=== PATIENT | female | born 1945 | race Caucasian/White ===

== ENCOUNTER → 2017-11-15 10:11 | Outpatient (CLI) | payer MEDICARE, SELFPAY ==
--- NOTE | 2017-11-15 10:14 | MM_ITS ---
MM Dig screening mamm BI w/CAD ORDERING PHYSICIAN : Javier Oviedo MD PATIENT AGE: 72 years GENDER: Female COMPARISON: August 2013,, distal mammogram INDICATION: ITS.REASON: SCREENING no hormones. Previous hysterectomy no new complaints. Noncontributory family history TECHNIQUE: Standard CC and MLO images were obtained. R2 CAD reviewed. FINDINGS: Moderate generalized fatty replacement with minimal residual fibroglandular elements bilaterally. I see no suspicious findings. No suspicious calcifications or suspicious mass. Fairly stable nodule inferior left breast RIGHT BREAST:Stable with no new findings follow-up in one year recommended on right. LEFT BREAST:There is a small nodular density at the left breast inferiorly which is stable since 2013 and this can be followed. It measures 5 mm x 4 mm size. On the MLO view & up to 6.8 mm on the cc view. It a can be followed Also note CAD computer review highlights no areas of concern in either breast IMPRESSION: No significant new findings Fairly Stable small nodule inferior left breast.- No significant change since 2013 Follow-up in one year recommended BI-RADS Category: 2 Benign Finding(s) RECOMMENDED FOLLOW-UP: 1YR 1 YEAR FOLLOW-UP (A letter has been sent to the patient regarding results of the study.)
== END ==
PROVIDERS: Family Provider Family Medicine; PCP Family Medicine; Visit Provider Family Medicine
DX: Z12.31 Encounter for screening mammogram for malignant neoplasm of breast (principal)
CPT/HCPCS: 77067

== ENCOUNTER → 2018-01-03 14:05 | Outpatient (CLI) | payer MEDICARE, SELFPAY ==
[2018-01-03 16:14] LABS: Alanine Aminotransferase 24 U/L (12-78); Albumin Level 3.7 gm/dL (3.4-5.0); Alkaline Phosphatase 88 U/L (46-116); Anion Gap 12.6 mEq/L (5-15); Bilirubin,Total 0.4 mg/dL (0.2-1.0); Blood Urea Nitrogen 20 mg/dL (7-18); Calcium 10.3 mg/dL (8.5-10.1); Carbon Dioxide 30 mmol/L (21.0-32.0); Chloride 104 mmol/L (98-107); Creatinine,Serum 0.84 mg/dL (0.55-1.02); Estimated Glomerular Filt Rate 66 ml/min (>60); GFR (African American) 80 ML/MIN (>60); Globulin 3.7 gm/dl (1.3-3.2); Glucose 95 mg/dL (74-106); Sodium 142 mmol/L (136-145); Total Protein,Serum 7.4 gm/dL (6.4-8.2)
[2018-01-03 16:16] LABS: Aspartate Amino Transferase 17 U/L (15-37); Potassium 4.6 mmoL/L (3.5-5.1)
== END ==
PROVIDERS: PCP Family Medicine; Visit Provider Otolaryngology
DX: Z01.818 Encounter for other preprocedural examination (principal); H65.90 Unspecified nonsuppurative otitis media, unspecified ear
CPT/HCPCS: 36415; 80053; 93005

== ENCOUNTER → 2018-03-19 11:04 | Outpatient (CLI) | payer MEDICARE, SELFPAY ==
[2018-03-19 12:12] LABS: Anion Gap 14.8 mEq/L (5-15); Blood Urea Nitrogen 15 mg/dL (7-18); Calcium 10.1 mg/dL (8.5-10.1); Carbon Dioxide 28 mmol/L (21.0-32.0); Chloride 101 mmol/L (98-107); Creatinine,Serum 0.92 mg/dL (0.55-1.02); Estimated Glomerular Filt Rate 60 ml/min (>60); GFR (African American) 72 ML/MIN (>60); Glucose 97 mg/dL (74-106); Potassium 4.8 mmoL/L (3.5-5.1); Sodium 139 mmol/L (136-145)
== END ==
PROVIDERS: Visit Provider Otolaryngology
DX: Z01.818 Encounter for other preprocedural examination (principal); H91.93 Unspecified hearing loss, bilateral
CPT/HCPCS: 36415; 80048; 93005

== ENCOUNTER → 2018-09-10 13:28 | Outpatient (POV) | payer MEDICARE, SELFPAY | PROVIDERS: Visit Provider Dermatology | DX: Z00.00 Encounter for general adult medical examination without abnormal findings (principal) ==

== ENCOUNTER → 2018-10-22 08:05 | Outpatient (CLI) | payer MEDICARE, SELFPAY ==
--- NOTE | 2018-10-22 08:18 | MR_ITS ---
MR head/brain wo/w con HISTORY: ITS.REASON: ASYMMETRIC SNHL (SENSORINEURAL HEARING LOSS) ORDERING PHYSICIAN: Molly Rehman MD PATIENT AGE: 73 years Comparison: 12/16/2013 TECHNIQUE: Standard multiplanar multiecho sequences are performed without and with gadolinium enhancement. FINDINGS: No midline shift, mass effect, intracranial hemorrhage, or hydrocephalus is evident. No acute infarction. No enhancing lesions are evident. The cerebellopontine angles, cerebellum, and brainstem are unremarkable. There are involutional changes of age with mild generalized atrophy and periventricular ischemic gliotic change. There is opacification of the left aspect of the sphenoid sinus. No sinus air-fluid levels or mastoid effusion is evident. IMPRESSION: 1. Essentially negative MRI of the brain without and with contrast. 2. There are involutional changes of age with atrophy and periventricular ischemic gliotic change. 3. Nonspecific opacification of left aspect of the sphenoid sinus
[2018-10-22 08:24] LABS: Blood Urea Nitrogen 16 mg/dL (7-18); Creatinine,Serum 0.95 mg/dL (0.55-1.02); Estimated Glomerular Filt Rate 57 ml/min (>60); GFR (African American) 69 ML/MIN (>60)
== END ==
PROVIDERS: Visit Provider Otolaryngology
DX: H90.5 Unspecified sensorineural hearing loss (principal)
CPT/HCPCS: 36415; 70553; 82565; 84520; A9576

== ENCOUNTER 2019-12-20 12:48 | Emergency (ER) | payer MEDICARE, SELFPAY ==
[2019-12-20 12:50] VITALS: BP 133/92; PULSE 114; RESP 18; TEMP 36.8; O2SAT 97; BMI 42.0
[2019-12-20 13:05] LABS: POC Glucose,Bedside 139 (70-110)
--- NOTE | 2019-12-20 13:06 | HMH.EDGENADL ---
ED Disposition Clinical Impression: Vertigo, Dehydration Vomiting Qualifiers: Vomiting type: unspecified Vomiting Intractability: non-intractable Nausea presence: with nausea Qualified Code(s): R11.2 - Nausea with vomiting, unspecified Disposition: Home, Self-Care Condition on Discharge: Good Instructions: DI for Vertigo, DI for Dehydration -- Adult Referrals: Javier Oviedo MD [Primary Care Provider] - 3 days - Critical Care Critical Care Time: No Attestation: On 12/20/19, the high probability of a clinically significant, sudden or life threatening deterioration of the following system(s) required my full and direct attention, intervention and personal management. The time I documented below is in addition to time spent performing reported procedures but includes the following listed in this critical care notation. Medical Decision Making - Medical Records Medical records reviewed: Yes: I reviewed the patient's medical records. - Dawit Inquiry Pt receiving controlled substance: No Vital Signs: 12/20/19 12:50 Temperature 98.2 F Temperature Source Oral Pulse Rate [Right] 114 H Respiratory Rate 18 Blood Pressure [Right Arm] 133/92 H Blood Pressure Mean [Right Arm] 105 02 Sat by Pulse Oximetry 97 - Lab Data Lab results reviewed: Yes: I reviewed the patient's lab results. Lab Results 12/20/19 13:03: POC Glucose 139 H 12/20/19 13:15: Urine Color Yellow, Urine Appearance Clear, Urine pH 7.0, Ur Specific [place] 1.025, Urine Protein Negative, Urine Glucose (UA) Negative, Urine Ketones 1+, Urine Blood Negative, Urine Nitrate Negative, Urine Bilirubin Negative, Urine Urobilinogen 0.2, Ur Leukocyte Esterase Negative, Urine RBC None, Urine WBC None, Ur Squamous Epith Cells 3-5, Amorphous Sediment 1+, Urine Bacteria 1+ 12/20/19 13:32: WBC 16.7 H, RBC 5.08, Hgb 14.7, Hct 42.2, MCV 82.9, MCH 28.9, MCHC 34.9, RDW 14.1, Plt Count 297, MPV 8.0, Neut % (Auto) 86.2 H, Lymph % (Auto) 9.7 L, [place] % (Auto) 3.5, Eos % (Auto) 0.3, Baso % (Auto) 0.3, Neut # (Auto) 14.4 H, Lymph # (Auto) 1.6, [place] # (Auto) 0.6, Eos # (Auto) 0.0, Baso # (Auto) 0.1, Total Counted 100, Neutrophils % (Manual) 87 H, Lymphocytes % (Manual) 10, Monocytes % (Manual) 3, Platelet Estimate Normal, RBC Morphology Normal 12/20/19 13:32: Sodium 138, Potassium 3.6, Chloride 100, Carbon Dioxide 29, Anion Gap 12.6, BUN 19 H, Creatinine 0.80, Estimated Creat Clear 38, Estimated GFR 70, Est GFR ( Amer) 84, Glucose 147 H, Calcium 10.2, Troponin I < 0.01 Result diagrams: 12/20/19 13:32 12/20/19 13:32 Orders (Tests/Meds): ED MEDICATIONS Discontinued Medications Generic Name Dose Route Start Last Admin Trade Name Freq PRN Reason Stop Dose Admin Sodium Chloride 1,000 mls @ 999 mls/hr 12/20/19 13:45 12/20/19 13:38 Sod Chlor 0.9% 1000ml Bag IV 12/20/19 14:45 999 mls/hr .Q1H1M DONATO Administration Ioversol 100 ml 12/20/19 15:09 12/20/19 15:11 Rad-Optiray 350 100ml Vial IV 12/20/19 15:10 100 ml ONCE ONE Administration Protocol Ondansetron HCl 4 mg 12/20/19 13:36 12/20/19 13:38 Zofran 4mg/2ml Vial IV 12/20/19 13:37 4 mg ONCE ONE Administration Sodium Chloride 50 ml 12/20/19 15:09 12/20/19 15:11 Rad-Ns 50ml Vial IV 12/20/19 15:10 50 ml ONCE ONE Administration Sodium Chloride 10 ml 12/20/19 15:09 12/20/19 15:11 Rad-Saline Flush 10ml Syringe IV 12/20/19 15:10 10 ml ONCE ONE Administration ORDERS Category Date Time Status Troponin I Q3H Lab 12/20/19 16:15 Ordered Troponin I Q3H Lab 12/20/19 19:15 Ordered EKG Request [ECG Request by /April] Stat Y 12/20/19 13:10 Ordered - CT Data CT Scan: Head Time Received: 15:[address] Reviewed: Yes: I have reviewed the patient's CT results Findings Narrative: CTA head and neck, CT head with no acute findings. Medical Decision Narrative: Patient feeling much better on reevaluation at 1540. Her CT scans are negative, urinalysis negative for
[2019-12-20 13:38] LABS: Microscopic, Urine URINE MICROSCOPIC (MICROSCOPIC)
[2019-12-20 13:39] LABS: Appearance,Urine CLEAR (Clear); Bilirubin,Urine Negative (Negative); Blood, Urine Negative (Negative); Color,Urine YELLOW (Yellow); Glucose,Urine (UA) Negative (Negative); Ketones,Urine 1+ (Negative); Leukocyte Esterase,Urine Negative (Negative); Nitrate,Urine Negative (Negative); Protein,Urine Negative (Negative); Specific Gravity, Urine 1.025 (1.005-1.030); Urobilinogen,Urine 0.2 EU/dl (0.2)
[2019-12-20 13:39] LABS: Basophils # 0.1 K/mm3 (0-0.2); Basophils % 0.3 % (0.1-2.0); Eosinophils % 0.3 % (0.1-12.0); Hematocrit 42.2 % (37.0-47.0); Hemoglobin 14.7 g/dL (12.2-16.2); Lymphocytes # 1.6 K/mm3 (0.7-4.5); Lymphocytes % 9.7 % (10-50); Mean Corpuscular HGB Conc 34.9 g/dL (31.8-35.4); Mean Corpuscular Hemoglobin 28.9 pg (27.0-31.2); Mean Corpuscular Volume 82.9 fl (81-99); Monocytes # 0.6 K/mm3 (0.1-1.0); Monocytes % 3.5 % (1.7-9.3); Neutrophils # 14.4 K/mm3 (1.8-7.8); Neutrophils % 86.2 % (37.0-80.0); Platelet Count 297 K/mm3 (142-424); Red Blood Count 5.08 M/mm3 (4.20-5.40); Red Cell Distribution Width 14.1 % (11.5-17.5); White Blood Count 16.7 K/mm3 (4.8-10.8)
[2019-12-20 13:42] LABS: MANUAL DIFFERENTIAL MANUAL DIFFERENTIAL (MANUAL DIFF)
[2019-12-20 13:43] LABS: Chloride 100 mmol/L (98-107); Sodium 138 mmol/L (136-145)
[2019-12-20 13:44] LABS: Potassium 3.6 mmoL/L (3.5-5.1)
[2019-12-20 13:46] LABS: Blood Urea Nitrogen 19 mg/dl (7-17); Creatinine Clearance Estimated 38 mL/min (50-200); Estimated Glomerular Filt Rate 70 ml/min (>60); GFR (African American) 84 ML/MIN (>60)
[2019-12-20 13:47] LABS: Anion Gap 12.6 mEq/L (5-15); Calcium 10.2 mg/dl (8.4-10.2); Carbon Dioxide 29 mmol/L (22.0-30.0); Glucose 147 mg/dl (74-100)
[2019-12-20 13:49] LABS: Amorphous Sediment,Urine 1+ /lpf; Bacteria,Urine 1+ /lpf
[2019-12-20 13:53] LABS: Lymphocytes % 10 % (10-50); Monocytes % 3 % (2-9); Neutrophils % 87 % (42-76); Platelet Estimate Normal; RBC Morphology Normal; Total Cells Counted 100
[2019-12-20 14:10] LABS: Troponin I < 0.01 ng/ml (0.00-0.034)
--- NOTE | 2019-12-20 14:12 | CT_ITS ---
Procedure: CT ANGIO NECK CLINICAL HISTORY: DIZZINESS Dizziness, stroke alert COMPARISON: No exams were available for comparison TECHNIQUE: IV Contrast: 100ml Optiray 350 Axial images obtained with sagittal and coronal reformats. All CT scans at the facility use one or more dose reduction, viz: automated exposure control, ma/kV adjustment per patient size (including targeted exams where dose is matched to indication, i.e. head), or iterative reconstruction technique. FINDINGS: CTA neck: The aortic arch has an unremarkable appearance. Right carotid: Common carotid is tortuous but unremarkable. Mild amount of calcific plaque is present in the right carotid bulb. The right internal carotid is tortuous but no significant stenosis. There is motion artifact involving the proximal aspect of the right internal carotid. Right vertebral: Unremarkable. No stenosis or dissection. Left carotid: Tortuous. No stenosis. No significant plaque ulceration or some dissection. Left vertebral: Unremarkable appearance. CT of the brain: No aneurysm, arteriovenous malformation, or major intracranial occlusive process. The vertebral basilar system has an unremarkable appearance. No evidence of sinus thrombosis. There is hypoplasia of the transverse sinus on the left. No enhancing lesions are apparent. Thin section images through the posterior fossa show no evidence of enhancing CP angle mass. IMPRESSION: 1. Negative CT angiogram of the neck 2. Negative CT angiogram of the head Dictated by: Walter Dunne MD 12/20/2019 15:32 Walter Dunne MD in [facility] 12/20/2019 15:32
--- NOTE | 2019-12-20 14:12 | CT_ITS ---
PROCEDURE: CT HEAD/BRAIN WO CON CLINICAL INDICATION: DIZZINESS Vertigo, stroke alert COMPARISON: CT HDWO CT HEAD W/O CONTRAST from 12/16/2013 TECHNIQUE: Axial images obtained. All CT scans at the facility use one or more dose reduction, viz: automated exposure control, ma/kV adjustment per patient size (including targeted exams where dose is matched to indication, i.e. head), or iterative reconstruction technique. FINDINGS: No midline shift, mass effect, intracranial hemorrhage, hydrocephalus, or extra-axial fluid collection is evident. The calvarium has an unremarkable appearance. No mastoid effusion. There is mild mucosal thickening of the sphenoid sinus IMPRESSION: No acute intracranial finding Dictated by: Walter Dunne MD 12/20/2019 15:21 Walter Dunne MD in [facility] 12/20/2019 15:21
[2019-12-20 16:45] VITALS: BP 131/57; PULSE 100; RESP 20; TEMP 36.8; O2SAT 97
== END 2019-12-20 16:46 | disposition home or self-care (01) ==
PROVIDERS: Emergency Provider Emergency Medicine; PCP Family Medicine
DX: R42 Dizziness and giddiness (principal); E86.0 Dehydration; I10 Essential (primary) hypertension; E78.5 Hyperlipidemia, unspecified; Z79.899 Other long term (current) drug therapy; Z88.2 Allergy status to sulfonamides
CPT/HCPCS: 70450; 70496; 70498; 80048; 81001; 82962; 84484; 85007; 85025; 96365; 96375; 99283; J2405; Q9967

== ENCOUNTER → 2020-02-16 12:09 | Outpatient (CLI) | payer MEDICARE, SELFPAY | PROVIDERS: PCP Nurse Practitioner Family; Visit Provider Nurse Practitioner Family | DX: Z20.828 Contact with and (suspected) exposure to other viral communicable diseases (principal); U07.1 COVID-19 | CPT/HCPCS: U0003 ==

== ENCOUNTER 2020-02-21 13:21 | Inpatient (IN) | payer MEDICARE, SELFPAY ==
[2020-02-21] VITALS (17 sets, daily range): BP systolic 112–144; BP diastolic 65–86; PULSE 70–102; RESP 19–48; TEMP 36.6–37.6; O2SAT 60–98; BMI 42.0; BMI 40.3; BMI 39.9
--- NOTE | 2020-02-21 | ECG_ITS ---
APPROVED REPORT Exam: Resting ECG HR:79 bpm ECG Measurements Heart Rate 79 AXES LA 158 P 25 QRSd 90 QRS -8 QT 420 T 21 QTc 481 Conclusion Normal sinus rhythm Normal ECG Electronically signed by : Tanner Quezada, 02/22/2020 16:52:07
--- NOTE | 2020-02-21 13:30 | PC.NURSE ---
received to exam 4 via wheelchair, entered room to find patient pale, dusky in color with tachypnea rate of approx 38 breaths per minutes, sao2 60% on ra with c/o severe shortness of breath. pt states she was diagnosed with covid last week. pt placed on cardiac, spo2, nibp monitoring and o2 at 100%NRB. Dr Ventura notified of patient status and is at bedside for eval.
--- NOTE | 2020-02-21 13:35 | PC.NURSE ---
After patient assessment by Dr. Ventura, he requests immediate transfer to ICU due to possible patient further decline warranting intubation and/or bipap usage. supervisor molding notified for bed request. Admitting called for consult.
--- NOTE | 2020-02-21 13:41 | ECG_ITS ---
APPROVED REPORT Exam: Resting ECG HR:100 bpm ECG Measurements Heart Rate 100 AXES MT 170 P 38 QRSd 94 QRS -13 QT 388 T 33 QTc 500 Conclusion Normal sinus rhythm Possible Left atrial enlargement Left ventricular hypertrophy Prolonged QT Abnormal ECG Electronically signed by : Tanner Quezada, 02/22/2020 16:59:31
--- NOTE | 2020-02-21 13:50 | PC.NURSE ---
room 266 received from [facility] supervisor. pt placed on portable transport monitor and Dr Ventura accompanied myself with transfer to ICU to monitor respiratory status. pt tolerated transfer well. spo2 96% on 100% NRB upon arrival to unit. Care transferred to ASAEL Felder at this time.
--- NOTE | 2020-02-21 14:04 | PC.NURSE ---
paged Dr. Bowens @ [phone] regarding orders for this pt. He returned call @ [phone]. Pt has not an ABG drawn yet. Dr. Bowens ordered to start with an ABG before placing pt on BiPap. Ordered entered on his behalf. RT @ . Updated her with new order.
--- NOTE | 2020-02-21 14:08 | PC.NURSE ---
pt brought to COVID unit @ [address] Ventura and Fátima Arvizu RN. Pt is on 100% NRB mask. O2 sat is 98%. Pt denies any SOA. Is A&O. HR 94. BP 132/74.
--- NOTE | 2020-02-21 14:09 | XR_ITS ---
PROCEDURE: XR CHEST PORTABLE CLINICAL HISTORY: shortness of breath COMPARISON: CR CXR1 CHEST-PORTABLE from 12/16/2013 FINDINGS: There is mild cardiomegaly with mild prominence of the mediastinum. There is diffuse bilateral alveolar opacification consistent with diffuse bilateral pneumonia with some sparing of the left apex. No acute bony abnormalities. IMPRESSION: Diffuse bilateral pneumonia Dictated by: Walter Dunne MD 02/21/2020 17:48 Walter Dunne MD in [facility] 02/21/2020 17:48
[2020-02-21 14:22] LABS: ABG Base Excess -0.4 mmol/L (-2.4-2.3); ABG HCO3 23.3 mmhg (22.0-26.0); ABG Oxygen Saturation 96 % (90-100); ABG PCO2 33.2 mmhg (35.0-45.0); ABG PH 7.47 mmol/L (7.35-7.45); ABG PO2 81.3 mmhg (80-100); ABG TCO2 24.4 mmhg (23-27)
[2020-02-21 14:23] LABS: Chloride 95 mmol/L (98-107); Sodium 138 mmol/L (136-145)
[2020-02-21 14:24] LABS: Allen's Test Acceptable; Oxygen 100% NRB %; Source Left Radial
[2020-02-21 14:26] LABS: Alanine Aminotransferase 51 U/L (12-78); Albumin Level 3.7 g/dl (3.5-5.0); Alkaline Phosphatase 123 U/L (38-126); Aspartate Amino Transferase 69 U/L (14-36); Bilirubin,Total 0.8 mg/dl (0.2-1.3); Blood Urea Nitrogen 50 mg/dl (7-17); Carbon Dioxide 29 mmol/L (22.0-30.0); Creatinine Clearance Estimated 39 mL/min (50-200); Estimated Glomerular Filt Rate 22 ml/min (>60); GFR (African American) 26 ML/MIN (>60); Globulin 3.7 g/dL (1.3-3.2); Total Protein,Serum 7.4 g/dl (6.3-8.2)
[2020-02-21 14:27] LABS: Calcium 9.3 mg/dl (8.4-10.2); Glucose 128 mg/dl (74-100)
[2020-02-21 14:40] LABS: Basophils # 0.1 K/mm3 (0-0.2); Basophils % 0.6 % (0.1-2.0); Eosinophils % 0.3 % (0.1-12.0); Hematocrit 43.4 % (37.0-47.0); Hemoglobin 14.3 g/dL (12.2-16.2); Lymphocytes # 1.8 K/mm3 (0.7-4.5); Lymphocytes % 15.3 % (10-50); Mean Corpuscular HGB Conc 32.9 g/dL (31.8-35.4); Mean Corpuscular Hemoglobin 27.4 pg (27.0-31.2); Mean Corpuscular Volume 83.2 fl (81-99); Mean Platelet Volume 8.3 fl (7.4-10.4); Monocytes # 0.5 K/mm3 (0.1-1.0); Monocytes % 3.9 % (1.7-9.3); Neutrophils # 9.5 K/mm3 (1.8-7.8); Neutrophils % 79.9 % (37.0-80.0); Platelet Count 322 K/mm3 (142-424); Red Blood Count 5.22 M/mm3 (4.20-5.40); Red Cell Distribution Width 13.9 % (11.5-17.5); White Blood Count 11.9 K/mm3 (4.8-10.8)
--- NOTE | 2020-02-21 14:40 | HMH.EDGENADL ---
ED Disposition Clinical Impression: Acute and chronic respiratory failure with hypoxia, COVID-19 Disposition: Admitted As Inpatient Condition on Discharge: Serious Referrals: Javier Oviedo MD [Primary Care Provider] - - Critical Care Critical Care Time: Yes Attestation: On 02/21/20, the high probability of a clinically significant, sudden or life threatening deterioration of the following system(s) required my full and direct attention, intervention and personal management. The time I documented below is in addition to time spent performing reported procedures but includes the following listed in this critical care notation. Total Critical Care Time: 30 Vital system(s) involved:: Respiratory Failure My critical care processes included: Assessment & monitoring of V/S, Initial and Re-exams, Coordinating Care Medical Decision Making - Medical Records Medical records reviewed: Yes: I reviewed the patient's medical records. - Dawit Inquiry Pt receiving controlled substance: No Vital Signs: 02/21/20 13:25 02/21/20 13:50 02/21/20 14:30 Temperature 98.3 F 98.3 F Temperature Source Temporal Artery Scan Temporal Artery Scan Pulse Rate 102 H Pulse Rate [Right Radial] 102 H Respiratory Rate 48 H 48 H Blood Pressure 142/80 H Blood Pressure [Right Arm] 142/80 H Blood Pressure Mean [Right Arm] 100 02 Sat by Pulse Oximetry 60 L 97 Oxygen Delivery Method Room Air Non-Rebreather Non-Rebreather Oxygen Flow Rate (LPM) 25 15 - Lab Data Lab Results 02/21/20 13:42: Sodium 138, Potassium 3.0 L, Chloride 95 L, Carbon Dioxide 29, Anion Gap 17.0 H, BUN 50 H, Creatinine 2.20 H, Estimated Creat Clear 39, Estimated GFR 22 L, Est GFR ( Amer) 26 L, Glucose 128 H, Calcium 9.3, Total Bilirubin 0.8, AST 69 H, ALT 51, Alkaline Phosphatase 123, Troponin I 0.10 H, Total Protein 7.4, Albumin 3.7, Globulin 3.7 H, Albumin/Globulin Ratio 1.0 L 02/21/20 14:15: Specimen Source Left radial, O2 % 100% nrb, ABG pH 7.47 H, ABG pCO2 33.2 L, ABG pO2 81.3, ABG HCO3 23.3, ABG Total CO2 24.4, ABG O2 Saturation 96, ABG Base Excess -0.4, Walter Test Acceptable Result diagrams: 02/21/20 13:42 Orders (Tests/Meds): ED MEDICATIONS Generic Name Dose Route Start Last Admin Trade Name Arelis PRN Reason Stop Dose Admin Acetaminophen 650 mg 02/21/20 14:30 Acetaminophen 325mg Tab PO 03/22/20 14:29 Q6HP PRN As Needed for Fever or Pain Dextrose/Sodium Chloride 1,000 mls @ 70 mls/hr 02/21/20 14:30 Dextrose 5%-0.45% Nacl Iv Soln IV 03/22/20 14:29 .[id number] DONATO Ondansetron HCl 4 mg 02/21/20 14:30 Ondansetron 4mg/2ml Vial IV 03/22/20 14:29 Q6HP PRN Nausea Sodium Chloride 3 ml 02/21/20 14:30 Sodium Chloride 3% 15ml Neb IH 03/22/20 14:29 ONCE PRN INDUCE SPUTUM COLLECTION ORDERS Category Date Time Status XR chest portable Stat Exams 02/21/20 14:09 Ordered Basic Metabolic Panel AMLAB Lab 02/22/20 06:00 Ordered Complete Blood Count Auto Diff AMLAB Lab 02/22/20 06:00 Ordered Complete Blood Count Auto Diff Stat Lab 02/21/20 13:42 Received Comprehensive Metabolic Panel Stat Lab 02/21/20 14:30 Ordered Lactic Acid Stat Lab 02/21/20 14:09 Ordered Troponin I Q3H Lab 02/21/20 17:15 Ordered Troponin I Q3H Lab 02/21/20 20:15 Ordered Blood Culture Stat Micro 02/21/20 14:10 Received Sputum Culture & Gram Stain Stat Micro 02/21/20 14:30 Ordered Arterial Blood Gas Daily RT 02/23/20 06:00 Ordered Arterial Blood Gas Daily RT 02/24/20 06:00 Ordered Arterial Blood Gas Daily RT 02/25/20 06:00 Ordered Arterial Blood Gas Daily RT 02/26/20 06:00 Ordered Arterial Blood Gas Daily RT 02/27/20 06:00 Ordered Arterial Blood Gas Stat RT 02/21/20 14:30 Ordered Venous Blood Gas Stat RT 02/21/20 14:30 Ordered Medical Decision Narrative: 74-year-old female Covid positive presenting hypoxic. Requiring nonrebreather on arrival and subsequently needing BiPAP. Was only mo
[2020-02-21 15:25] LABS: Coronavirus 19 IgG Antibody Positive (Negative); Coronavirus 19 IgM Antibody Positive (Negative)
--- NOTE | 2020-02-21 15:27 | PC.NURSE ---
pt now breathing 15/min. She is A&O and calm. HR 78. BP 122/69. O2 sat 96% on 100% NRB mask. Pt has not been placed on BiPap @ this time. Received call from lab that IgG and IgM are both postitive.
--- NOTE | 2020-02-21 16:37 | PC.NURSE ---
I was notified by Alistair Abreu RN that pt triggered sepsis at 1342, I spoke with Lorna in ER to request sepsis orders (bolus, abx) be placed by ER doc, she declined. Pt was brought to the floor emergently without any orders as ER MD anticipated immediate need for bipap. Was told to page the lead mason tender. I passed this onto pt's RN.
--- NOTE | 2020-02-21 17:03 | PC.NURSE ---
pt has triggered for sepsis AEB HR>90, RR>20, and Cr 2.0. Called ED and spoke to Amanda Hogue. Asked if she will updated ED MD and see if he wants me to continue with sepsis checklist which requires a 2973mL fluid bolus and IV abx. Brandee reports that this pt is now upstairs that I need to call Dr. Bowens for issues. Called Dr. Bowens. He ordered Levaquin 500mg IV now. I faxed that order to [facility]. He also ordered to switch NRB to Vapotherm. Called RT (Will) and updated him. Dr. Bowens also ordered to contact oncall pharmacist and have them order the medications used to treat COVID-19 pts. Called oncall pharmacist (Gary Barragan). She reports that she will call me back with new orders. Dr. Bowens also wants pt to receive sepsis fluid bolus of 2973mL. Order for fluid bolus faxed to [facility].
--- NOTE | 2020-02-21 17:57 | PC.NURSE ---
2nd PIV started in left hand for 2973mL sepsis fluid bolus. Repeat troponin dmitriy from right thumb vein @ 1750. Doron Sanabria delivered specimen to lab. Sepsis bolus started @ 1755. Levaquin 500mg IV started @ 1755. Dr. Bowens calleed @ 1800 and reports that he will make rounds in aprox 45 min. RT (Will) @ BS initiating Vapotherm @ 1800.
[2020-02-21 18:15] LABS: Troponin I 0.23 ng/ml (0.00-0.034)
--- NOTE | 2020-02-21 18:45 | PC.NURSE ---
pt admitted to COVID unit from ED. Pt arrived to unit @ 1350. Came to unit on 100% NRB mask. Was never placed on Bipap. Switched to Vapotherm @ 1800. Settings are 75%/18L. Pt tolerating well. O2 sat 94% on Vapotherm. RR in the 30-40s. She continues to deny SOA. Reports that her mouth is dry. NSR on tele. Troponin increased from 0.10 @ 1340 to 0.23 @ 1750. 3rd troponin due @ 2014. Daughter updated by phone.
--- NOTE | 2020-02-21 18:57 | PC.NURSE ---
Dr. Bowens rounded. He ordered a STAT EKG. RT (Will) @ BS and completed EKG.
--- NOTE | 2020-02-21 19:46 | HMH.HP ---
*Admission Date: 02/21/20 *Chief complaint: sob *History of present illness: this pt with recent positive covid-19 test earlier this week has been progressive weak with sob and insurance billing clerk cough - pt presented to the ed -74-year-old female with a history of hypertension, hyperlipidemia and diagnosis of COVID-19 1 week ago presenting with 1 week history of worsening shortness of breath. Hypoxic on arrival to the 60s and speaking in short sentences. No fever, chills, nausea, vomiting, chest pain, cough. The symptoms have improved since her initial diagnosis, however she has worsening shortness of breath even at rest. -year-old female Covid positive presenting hypoxic. Requiring nonrebreather on arrival and subsequently needing BiPAP. Was only moved out of the emergency department to the ICU to receive BiPAP in an isolation room. I emergently spoke to her primary care physician who will assume care after she is initially stabilized. Patient's oxygenation improved to the high 90s on nonrebreather and continued to improve symptomatically while on BiPAP while he briefly stayed with her in the ICU. I escorted her from the emergency department to the ICU without any adverse events. Labs ordered and initiated including CBC, CMP, troponins and xrays [facility] History I have reviewed the patient's past medical history: Yes Medical History: Reports:: Hyperlipidemia, Hypertension Denies:: Cancer, Diabetes Mellitus Type 1, Diabetes Mellitus Type 2, Internal Pacemaker, Lung Disease, MRSA, Seizures *Have you ever received a pneumonia vaccine?: No *Have you received a flu vaccine this season?: No Other Medical History: Denies: Blood Transfusion Reaction Laterality Cases: Bilateral: Myringotomy (Ear Tubes), Other Other Surgeries: Yes: Appendectomy, Hysterectomy-Total. No: Pacemaker Amputation: No Fractures: No - *Social History Smoking Status: Never smoker Alcohol Intake: never Substance Use Type: denies use *Occupational Status:: retired Housing: house Household Members: spouse *Travel in the last 8 weeks: None Family Hx:: Unable to obtain Review of Systems - Review of Systems Review of systems:: pertinent systems reviewed and negative unless documented below - Constitutional Reports weakness, Denies fever(s) - Eyes Denies change in vision - ENT Denies sore throat - *Cardiovascular Reports shortness of breath, Denies chest pain at rest - *Respiratory Reports cough, Denies coughing up blood - *Gastrointestinal Denies abdominal pain - *Genitourinary Denies blood in urine - *Musculoskeletal Denies joint pain - Integumentary/Breasts Denies rash - *Neurologic Denies localized weakness, Denies headache(s), Denies tingling/numbness/burning sensations - Psychiatric Denies anxiety Meds Home Medications Medication Instructions Recorded Confirmed Type lisinopril 20 mg tablet 20 mg PO QDAY 04/21/17 02/21/20 History lovastatin 20 mg tablet 20 mg PO QDAY 04/21/17 02/21/20 History Aspirin [Aspir 81] 81 mg PO DAILY 10/16/17 02/21/20 History Glucosam/Ian-Msm1/C/Robbei/Bosw 1 each PO DAILY 10/16/17 02/21/20 History [Osteo Bi-Flex Caplet] Allergies Allergy/AdvReac Type Severity Reaction Status Date / Time Sulfa (Sulfonamide Allergy Intermediate Hives Verified 02/21/20 14:12 Antibiotics) Exam Vital signs and Labs for Last 24 Hours: Temp Pulse Resp BP Pulse Ox 98.3 F 77 38 H 144/80 H 95 02/21/20 19:00 02/21/20 19:00 02/21/20 19:00 02/21/20 19:00 02/21/20 19:00 Laboratory Results - last 24 hr 02/21/20 13:42: WBC 11.9 H, RBC 5.22, Hgb 14.3, Hct 43.4, MCV 83.2, MCH 27.4, MCHC 32.9, RDW 13.9, Plt Count 322, MPV 8.3, Neut % (Auto) 79.9, Lymph % (Auto) 15.3, [place] % (Auto) 3.9, Eos % (Auto) 0.3, Baso % (Auto) 0.6, Neut # (Auto) 9.5 H, Lymph # (Auto) 1.8, [place] # (Auto) 0.5, Eos # (Auto) 0.0, Baso # (Auto) 0.1 02/21/20 13:42: Sodium 138, Potassium 3.0 L, Chloride 95 L, Carbon Dioxide 29, Anion Gap 17.0 H, BUN 5
[2020-02-21 21:14] LABS: Troponin I 0.17 ng/ml (0.00-0.034)
[2020-02-21 21:18] LABS: Procalcitonin 0.167 ng/mL (0.0-2.0)
--- NOTE | 2020-02-21 21:22 | PC.NURSE ---
She is A&0x4. She denies SOA at rest but states she feels SOA and weak with exertion. Although, when she speaking she pauses and appears to be SOA. She is on the vapotherm at this time. Settings are 24LPM 70% FiO2. She reports having phlegm that is yellow in color. Non-productive cough noted while at bedside. She has a emesis bag for phlegm. She reports having a poor appetite this past week. She was able to take a few drinks of a [place] boost and is drinking water. She reports her last BM was approx. a week ago. Denies nausea and vomiting. Afebrile at this time. Continues in contact and airborne precautions.
[2020-02-22] VITALS (18 sets, daily range): BP systolic 116–144; BP diastolic 63–89; PULSE 65–88; RESP 16–48; TEMP 36.5–37.2; O2SAT 89–97; BMI 39.6
--- NOTE | 2020-02-22 00:19 | PC.NURSE ---
Her on oxygen dropped to 81% getting up to the BSC while on vapotherm.
[2020-02-22 00:42] LABS: Microscopic, Urine URINE MICROSCOPIC (MICROSCOPIC)
[2020-02-22 00:44] LABS: Appearance,Urine SL CLOUDY (Clear); Bilirubin,Urine Negative (Negative); Blood, Urine Negative (Negative); Color,Urine YELLOW (Yellow); Glucose,Urine (UA) Negative (Negative); Ketones,Urine Negative (Negative); Leukocyte Esterase,Urine TRACE (Negative); Nitrate,Urine POSITIVE (Negative); Protein,Urine Negative (Negative)
[2020-02-22 00:47] LABS: WBC,Urine 50-100 #/hpf (0-3)
--- NOTE | 2020-02-22 00:49 | PC.NURSE ---
O2 sats frequently at 89%. Respiratory notified and vapotherm setting changed to 30LPM 75% FiO2.
--- NOTE | 2020-02-22 02:38 | PC.NURSE ---
Respiratory noted at this time. Pt maintaining 88-89% on vapotherm. She states she cannot take a deep breath. Vapotherm now at 35LPM 80% FiO2.
--- NOTE | 2020-02-22 03:01 | PC.NURSE ---
Respiratory paged for a breathing tx r/t sats at 89%. Breathing tx administered by respiratory and vapotherm settings increased to 35LPM 90% FiO2.
--- NOTE | 2020-02-22 04:52 | PC.NURSE ---
She continues to be tachypneic. SOA noted when talking. She continues to speak in short sentences. Have attempted to get her to use incentive spirometer but she is unable to inhale deeply.
[2020-02-22 05:05] LABS: Basophils % 0.2 % (0.1-2.0); Eosinophils % 0.1 % (0.1-12.0); Hematocrit 31.4 % (37.0-47.0); Hemoglobin 9.6 g/dL (12.2-16.2); Lymphocytes # 0.6 K/mm3 (0.7-4.5); Lymphocytes % 12.1 % (10-50); Mean Corpuscular HGB Conc 30.6 g/dL (31.8-35.4); Mean Corpuscular Hemoglobin 27.7 pg (27.0-31.2); Mean Corpuscular Volume 90.5 fl (81-99); Mean Platelet Volume 8.6 fl (7.4-10.4); Monocytes # 0.3 K/mm3 (0.1-1.0); Monocytes % 6.1 % (1.7-9.3); Neutrophils # 4.1 K/mm3 (1.8-7.8); Neutrophils % 81.5 % (37.0-80.0); Platelet Count 250 K/mm3 (142-424); Red Blood Count 3.47 M/mm3 (4.20-5.40); Red Cell Distribution Width 14.5 % (11.5-17.5)
[2020-02-22 05:10] LABS: Alanine Aminotransferase 40 U/L (12-78); Albumin Level 2.9 g/dl (3.5-5.0); Albumin/Globulin Ratio 0.9 (1.1-1.8); Alkaline Phosphatase 113 U/L (38-126); Anion Gap 9.8 mEq/L (5-15); Aspartate Amino Transferase 53 U/L (14-36); Bilirubin,Total 0.6 mg/dl (0.2-1.3); Blood Urea Nitrogen 35 mg/dl (7-17); Carbon Dioxide 25 mmol/L (22.0-30.0); Chloride 106 mmol/L (98-107); Estimated Glomerular Filt Rate 48 ml/min (>60); GFR (African American) 58 ML/MIN (>60); Globulin 3.2 g/dL (1.3-3.2); Potassium 3.8 mmoL/L (3.5-5.1); Sodium 137 mmol/L (136-145); Total Protein,Serum 6.1 g/dl (6.3-8.2)
[2020-02-22 05:20] LABS: Calcium 7.9 mg/dl (8.4-10.2); Creatinine Clearance Estimated 67 mL/min (50-200); Glucose 165 mg/dl (74-100)
[2020-02-22 05:26] LABS: Procalcitonin 0.139 ng/mL (0.0-2.0)
--- NOTE | 2020-02-22 06:00 | XR_ITS ---
PROCEDURE: XR CHEST PORTABLE Referring Doctor: Javier Oviedo Patient Age:74Y CLINICAL HISTORY: covid pneumonia follow up COMPARISON: CR CXR1 CHEST-PORTABLE from 12/16/2013 CR XR CHEST PORTABLE from 02/21/2020 FINDINGS: AP portable upright chest performed today. Comparison to yesterdays 02/21/2020 chest film most useful Diffuse extensive bilateral pneumonia, is again seen but overall appear similar. No improvement and if anything slight progression some areas of lung opacity. Right lung. Diffuse patchy infiltrate. And more dominant focal area opacity periphery of the RUL, projected over the anterior 2nd interspace, is perhaps slightly denser today Left lung: Area of opacity at periphery of the left mid lung may be slightly denser as are some of the patchy infiltrates towards the left lower lobe. Central perihilar infiltrate is similar to yesterday. No evident pleural effusion; no pneumothorax.. Mild cardiomegaly with generous with of the mediastinum on this portable upright study with generous azygos vein shadow-could reflect some element of vascular congestion compared to 2013 CXR Of would be difficult to exclude some associated developing superior mediastinal adenopathy compared to 2014 given more generous with of the superior mediastinum . No bony abnormalities. court recording monitor leads in place slight elevation right hemidiaphragm similar to previous studies IMPRESSION: . 1..Extensive diffuse bilateral pneumonia again evident Findings similar to yesterday with some areas perhaps slightly denser and slightly more pronounced. Certainly no improved, since yesterday 2..Mild cardiomegaly. Difficult to exclude element of mild vascular congestion but no evident pleural effusions Dictated by: Arnold Gonzalez MD 02/22/2020 09:57 Arnold Gonzalez MD in [place] 02/22/2020 09:57
--- NOTE | 2020-02-22 07:07 | HMH.ACPN2 ---
Internal Medicine - PN: Subj *Date: 02/22/20 *Time: 07:07 Interval history: Patient reports a persistently feeling sick . Specifically she feels weak and nauseous at times. She denies shortness of breath. Nursing staff reports O2 sats have varied between the mid to high 80s and high 90s where they rest currently. Patient denies pain. She denies having fevers at home. Her visit to the ER was triggered by her daughter detecting hypoxia with a home pulse oximeter. Patient denies having any chest pain prior to or during the admission. Patient denies any dysuria or urinary frequency and urgency Exam Vital signs and Labs for Last 24 Hours: Temp Pulse Resp BP Pulse Ox 97.8 F 79 38 H 141/89 H 93 L 02/22/20 06:00 02/22/20 06:00 02/22/20 06:00 02/22/20 06:00 02/22/20 06:00 Laboratory Results - last 24 hr 02/21/20 13:42: WBC 11.9 H, RBC 5.22, Hgb 14.3, Hct 43.4, MCV 83.2, MCH 27.4, MCHC 32.9, RDW 13.9, Plt Count 322, MPV 8.3, Neut % (Auto) 79.9, Lymph % (Auto) 15.3, [place] % (Auto) 3.9, Eos % (Auto) 0.3, Baso % (Auto) 0.6, Neut # (Auto) 9.5 H, Lymph # (Auto) 1.8, [place] # (Auto) 0.5, Eos # (Auto) 0.0, Baso # (Auto) 0.1 02/21/20 13:42: Sodium 138, Potassium 3.0 L, Chloride 95 L, Carbon Dioxide 29, Anion Gap 17.0 H, BUN 50 H, Creatinine 2.20 H, Estimated Creat Clear 39, Estimated GFR 22 L, Est GFR ( Amer) 26 L, Glucose 128 H, Calcium 9.3, Total Bilirubin 0.8, AST 69 H, ALT 51, Alkaline Phosphatase 123, Troponin I 0.10 H, Total Protein 7.4, Albumin 3.7, Globulin 3.7 H, Albumin/Globulin Ratio 1.0 L 02/21/20 13:45: Lactate 2.0 02/21/20 13:45: SARS-CoV-2 IgG Ab (Rapid) Positive A, SARS-CoV-2 IgM Ab (Rapid) Positive A 02/21/20 14:15: Specimen Source Left radial, O2 % 100% nrb, ABG pH 7.47 H, ABG pCO2 33.2 L, ABG pO2 81.3, ABG HCO3 23.3, ABG Total CO2 24.4, ABG O2 Saturation 96, ABG Base Excess -0.4, Walter Test Acceptable 02/21/20 17:40: Troponin I 0.23 H 02/21/20 17:40: Procalcitonin 0.167 02/21/20 20:15: Troponin I 0.17 H 02/22/20 00:20: Urine Color Yellow, Urine Appearance Sl cloudy, Urine pH 6.0, Ur Specific Moy[place] 1.020, Urine Protein Negative, Urine Glucose (UA) Negative, Urine Ketones Negative, Urine Blood Negative, Urine Nitrate Positive, Urine Bilirubin Negative, Urine Urobilinogen 1.0, Ur Leukocyte Esterase Trace, Urine WBC 50-100, Ur Squamous Epith Cells 10-20 02/22/20 04:30: WBC 5.0 D, RBC 3.47 L D, Hgb 9.6 L D, Hct 31.4 L, MCV 90.5, MCH 27.7, MCHC 30.6 L, RDW 14.5, Plt Count 250, MPV 8.6, Neut % (Auto) 81.5 H, Lymph % (Auto) 12.1, [place] % (Auto) 6.1, Eos % (Auto) 0.1, Baso % (Auto) 0.2, Neut # (Auto) 4.1, Lymph # (Auto) 0.6 L, [place] # (Auto) 0.3, Eos # (Auto) 0.0, Baso # (Auto) 0.0 02/22/20 04:30: Sodium 137, Potassium 3.8 D, Chloride 106, Carbon Dioxide 25, Anion Gap 9.8, BUN 35 H D, Creatinine 1.10 H D, Estimated Creat Clear 67, Estimated GFR 48 L, Est GFR ( Amer) 58 L D, Glucose 165 H D, Calcium 7.9 L D, Total Bilirubin 0.6, AST 53 H, ALT 40, Alkaline Phosphatase 113, Total Protein 6.1 L, Albumin 2.9 L D, Globulin 3.2, Albumin/Globulin Ratio 0.9 L, Procalcitonin 0.139 I & O for Last 24 hours: Intake & Output 02/19/20 02/20/20 02/21/20 02/22/20 11:59 11:59 11:59 11:59 Intake Total 4533 / 4533 Output Total 300 / 300 Balance 4233 / 4233 Weight 215 lb 3 oz Narrative: Patient is tachypneic with some conversational dyspnea. Oropharynx is moist. Lungs are clear anteriorly but have rhonchi posteriorly and bilaterally from the mid lungs to the bases. No wheezing is heard. Heart has a regular rate and rhythm. Abdomen is soft. Lower extremities have no edema. Assessment and Plan (1) Pneumonia due to 2019 novel coronavirus Status: Acute Category: Medical Code(s): U07.1 - COVID-19; J12.89 - Other viral pneumonia (2) COVID-19 Status: Acute Category: Medical Code(s): U07.1 - COVID-19 (3) Severe sepsis with acute organ dysfunction Status: Resolved Category: Medical Code(s): A41.9 -
[2020-02-22 07:21] LABS: ABG Base Excess -0.4 mmol/L (-2.4-2.3); ABG HCO3 23.5 mmhg (22.0-26.0); ABG Oxygen Saturation 94 % (90-100); ABG PH 7.46 mmol/L (7.35-7.45); ABG PO2 68.9 mmhg (80-100); ABG TCO2 24.5 mmhg (23-27)
[2020-02-22 07:31] LABS: Allen's Test Acceptable; Oxygen 90 %; Source Right Radial
[2020-02-22 07:34] LABS: C-Reactive Protein 151.9 mg/L (0-4)
--- NOTE | 2020-02-22 10:17 | PC.NURSE ---
received new order from Dr. Oviedo to increase FiO2 on Vapotherm to 100% and increase L/min to 40. Contacted RT (Ashley) and gave her new orders.
--- NOTE | 2020-02-22 14:48 | HMH.PHAVTE ---
[facility] Pharmacy VTE Monitoring - Patient Demographics Admission date: 02/21/20 Report Date: 02/22/20 Time: 14:48 Allergies/Adverse Reactions: Patient Allergies Sulfa (Sulfonamide Antibiotics) Allergy (Intermediate, Verified 02/21/20 14:12) Hives Height: 1.57 m Weight: 97.607 kg Patient Problems: Current Active Problems Acute and chronic respiratory failure with hypoxia (Acute) COVID-19 (Acute) Elevated troponin (Acute) Obesity (Acute) Pneumonia due to 2019 novel coronavirus (Acute) Hypokalemia (Acute) Acute respiratory failure due to COVID-19 (Acute) - VTE Risk Labs: VTE Related Lab Results Hgb 9.6 g/dL (12.2-16.2) L D 02/22/20 04:30 Hct 31.4 % (37.0-47.0) L 02/22/20 04:30 Plt Count 250 K/mm3 (142-424) 02/22/20 04:30 BUN 35 mg/dl (7-17) H D 02/22/20 04:30 Creatinine 1.10 mg/dl (0.52-1.04) H D 02/22/20 04:30 Estimated Creat Clear 67 mL/min (50-200) 02/22/20 04:30 Was VTE Risk Assessment Performed: Yes VTE Score: 1 VTE Risk Level: Very Low Risk - Prophylaxis VTE Prophylaxis Ordered?: Yes Types of VTE Prophylaxis: Pharmacological Pharmacologic Type: Enoxaparin
--- NOTE | 2020-02-22 18:47 | PC.NURSE ---
Pt has been stable this shift. Is on 100%/40L Vapotherm. Using IS Q1HWA. Lungs sound more clear today than compared to yesterday. Dutton catheter noted. Appetite remains poor, eating a couple bites of each meal. VSS stable. No BM today. Offered to get her up to chair today, but she refused. Gets SOA when talking on the phone and with any activity. NSR on tele.
--- NOTE | 2020-02-22 22:16 | PC.NURSE ---
She continues in contact and airborne precautions. She denies SOA and states she is not coughing as much as last night. Denies productive cough. Remains tachypneic. She is using the incentive spirometer when encouraged. Continues on vapotherm @ 40LPM 100% FiO2. 95% at this time. Denies pain.
[2020-02-23] VITALS (63 sets, daily range): BP systolic 54–152; BP diastolic 37–106; PULSE 61–118; RESP 15–47; TEMP 36.7–38; O2SAT 76–100; BMI 39.7
--- NOTE | 2020-02-23 00:01 | CA_ITS ---
APPROVED REPORT EXAM: Comprehensive 2D, Doppler, and color-flow Echocardiogram Maintenance Shop Technician: Jolynn Chappell CRT Ht: 5 ft 1 in Wt: 215lbs BSA: 1.95 BP: 92/63 mmHg Indications: + covid 19, resp failure, intubated, Hyperlipidemia, Hypertension/HDD, Obesity, sepsis, increased trop 2D Dimensions LVOT 1.95 cm (M/F) 1.5-2.5 M-Mode Dimensions RVDd 5.06 cm (0.9-2.6) LA Diam 3.46 cm (1.9-4.0) LVDd 2.11 cm (3.5-5.7) Ao Diam 3.43 cm (2.0-3.7) LVDs 1.01 cm (3.5-5.7) IVSd 1.04 cm (0.6-1.1) PWd 1.01 cm (0.6-1.1) EF (Teich) 85.60% FS 52.10% EDV (Teich) 14.60 mL ESV (Teich) 2.10 mL LV Diastology E Decel Time 150.00 (160-240 msec) E/A Ratio 1.9 MED E' 4.30 (< 7 cm/sec) E'/MED E' Ratio 23.44 (>14) LAT E' 6.80 (<10 cm/sec) E/LAT E' Ratio 14.82 (>14) Aortic Valve AO Peak GR. 8.70 mmHg Mitral Valve MV E Max Norris. 101.00 (40-130 cm/s) MV A Velocity 54.00 (40-130 cm/s) E/A Ratio 1.86 MV Decel. Time 150.00 (160-240 ms) MV PHT 44.00 ms Pulmonary Valve PV Peak Velocity 181.00 (50-150 cm/s) Tricuspid Valve TR P. Velocity 322.00 cm/s RAP Estimate 10.00 mmHg RVSP 51.40 mmHg Left Ventricle Technically difficult study because of the patient factors and poor acoustic windows. Left atrium is mildly enlarged, left ventricle is normal size, mild concentric left ventricular hypertrophy, visually estimated ejection fraction 55% with no regional wall motion abnormality. Endocardial surfaces are poorly visualized. Diastolic parameters are inconclusive. There is flattening of the intraventricular septum during systole and diastole consistent with blood pressure and volume overload on right ventricle. Right Ventricle Right atrium and right ventricle Are markedly enlarged, contractility of the right ventricle is moderately reduced. Aortic Valve Aortic valve is minimally thickened and fibrosed, there is no aortic stenosis or aortic insufficiency. Mitral Valve Mitral valve is grossly normal, there is mild mitral regurgitation. Tricuspid Valve Tricuspid valve is poorly visualized, there is mild tricuspid regurgitation, calculated right ventricular systolic pressure is 50 mmHg. Inferior vena cava is dilated without inspiratory collapse. Pulmonic Valve Pulmonic valve is poorly visualized. Great Vessels Aortic root is normal size. Pericardium No significant pericardial effusion noted. Conclusion 1. Technically difficult study because of the patient fact in poor acoustic windows. 2. Normal left ventricular size, mild concentric left ventricular hypertrophy, visually estimated ejection fraction 55% with no regional wall motion abnormality, endocardial surfaces are poorly visualized, diastolic parameters are inconclusive. There is flattening of the intraventricular septum during systole and diastole consistent with pressure and volume overload on right ventricle. 3. Markedly enlarged right ventricle with moderate reduction in left ventricular systolic function. 4. Mild mitral and tricuspid regurgitation, calculated right ventricular systolic pressure is 50 mmHg, inferior vena cava is dilated without inspiratory collapse. 5. No significant pericardial effusion noted. Electronically signed by : Azar Lazaro, 02/24/2020 05:40:37
--- NOTE | 2020-02-23 03:24 | PC.NURSE ---
She has been awake most of the night. Intermittent coughing noted. She was able to eat part of a vanilla ice cream.
[2020-02-23 05:51] LABS: Basophils # 0.1 K/mm3 (0-0.2); Basophils % 0.3 % (0.1-2.0); Eosinophils # 0.1 K/mm3 (0.0-0.4); Eosinophils % 0.4 % (0.1-12.0); Hematocrit 37.4 % (37.0-47.0); Hemoglobin 12.7 g/dL (12.2-16.2); Lymphocytes # 1.5 K/mm3 (0.7-4.5); Lymphocytes % 8.4 % (10-50); Mean Corpuscular HGB Conc 33.8 g/dL (31.8-35.4); Mean Corpuscular Hemoglobin 27.9 pg (27.0-31.2); Mean Corpuscular Volume 82.4 fl (81-99); Mean Platelet Volume 7.6 fl (7.4-10.4); Monocytes # 0.9 K/mm3 (0.1-1.0); Monocytes % 5.1 % (1.7-9.3); Neutrophils # 15.2 K/mm3 (1.8-7.8); Neutrophils % 85.9 % (37.0-80.0); Platelet Count 319 K/mm3 (142-424); Red Blood Count 4.54 M/mm3 (4.20-5.40); Red Cell Distribution Width 14.5 % (11.5-17.5); White Blood Count 17.7 K/mm3 (4.8-10.8)
[2020-02-23 05:52] LABS: MANUAL DIFFERENTIAL MANUAL DIFFERENTIAL (MANUAL DIFF)
--- NOTE | 2020-02-23 05:55 | XR_ITS ---
PROCEDURE: XR CHEST PORTABLE CLINICAL HISTORY: stat Pneumonia follow-up, O2 saturation dropping COMPARISON: CR CXR1 CHEST-PORTABLE from 12/16/2013 CR XR CHEST PORTABLE from 02/21/2020 CR XR CHEST PORTABLE from 02/22/2020 FINDINGS: There is diffuse bilateral alveolar opacification consistent with diffuse bilateral pneumonia which is overall not significantly changed from 02/22/2020. There is cardiomegaly. No evidence of pneumothorax No acute bony IMPRESSION: Overall no change in the diffuse bilateral pneumonia Dictated by: Walter Dunne MD 02/23/2020 06:25 Walter Dunne MD in [place] 02/23/2020 06:25
[2020-02-23 05:59] LABS: Alanine Aminotransferase 53 U/L (12-78); Albumin Level 2.9 g/dl (3.5-5.0); Albumin/Globulin Ratio 0.9 (1.1-1.8); Alkaline Phosphatase 121 U/L (38-126); Anion Gap 8.7 mEq/L (5-15); Aspartate Amino Transferase 68 U/L (14-36); Bilirubin,Total 0.6 mg/dl (0.2-1.3); Blood Urea Nitrogen 33 mg/dl (7-17); Calcium 8.1 mg/dl (8.4-10.2); Carbon Dioxide 27 mmol/L (22.0-30.0); Chloride 105 mmol/L (98-107); Creatinine Clearance Estimated 74 mL/min (50-200); Estimated Glomerular Filt Rate 61 ml/min (>60); GFR (African American) 74 ML/MIN (>60); Globulin 3.3 g/dL (1.3-3.2); Glucose 133 mg/dl (74-100); Potassium 3.7 mmoL/L (3.5-5.1); Sodium 137 mmol/L (136-145); Total Protein,Serum 6.2 g/dl (6.3-8.2)
[2020-02-23 06:05] LABS: C-Reactive Protein 64.1 mg/L (0-4)
[2020-02-23 06:09] LABS: Lymphocytes % 7 % (10-50); Monocytes % 2 % (2-9); Neutrophils % 85 % (42-76); Platelet Estimate Normal; RBC Morphology Normal; Rouleaux 1+; Total Cells Counted 100
[2020-02-23 06:24] LABS: ABG Base Excess 2.7 mmol/L (-2.4-2.3); ABG HCO3 26.8 mmhg (22.0-26.0); ABG Oxygen Saturation 92 % (90-100); ABG PCO2 40.5 mmhg (35.0-45.0); ABG PH 7.44 mmol/L (7.35-7.45); ABG PO2 59.4 mmhg (80-100); ABG TCO2 28.1 mmhg (23-27)
[2020-02-23 06:26] LABS: Oxygen 100 %
[2020-02-23 06:27] LABS: Allen's Test ACCEPTABLE; Source RIGHT RADIAL ARTERY
--- NOTE | 2020-02-23 06:54 | XR_ITS ---
PROCEDURE: XR CHEST PORTABLE CLINICAL HISTORY: ET TUBEPLACEMNT The respiratory failure, pneumonia COMPARISON: No exams were available for comparison FINDINGS: 7:20 a.m.. Endotracheal tube has been placed. The tip is in good position 2.4 cm above the cyn. Diffuse bilateral pneumonia once again noted. No evidence of pneumothorax. Normal heart size. IMPRESSION: Good position of endotracheal tube with no change in the diffuse bilateral alveolar disease/pneumonia Dictated by: Walter Dunne MD 02/23/2020 07:48 Walter Dunne MD in [place] 02/23/2020 07:48
--- NOTE | 2020-02-23 07:11 | PC.NURSE ---
Pt intubated at 0711, pt was a difficult intubation. ET tube size 7 and 23 @ the lip. Had to bag pt for an hour and a half to keep saturations up. Pt over breathing vent at this time (40x a minute)
--- NOTE | 2020-02-23 07:16 | HMH.RR ---
Acute Rapid Response Note - Subjective Date Responded: 02/23/20 Time Responded: 06:00 Provider Note: pt with increased resp distress and worsening cxr and failed bpap - dr crawley arrived and requested intubation - - Objective Findings: Vital Signs - Last 4 Hours Temperature 98.0 F 02/23/20 06:00 Temperature Source Rectal 02/23/20 06:00 Pulse Rate 105 H 02/23/20 06:00 Respiratory Rate 44 H 02/23/20 06:00 Blood Pressure 135/79 02/23/20 06:00 Blood Pressure Mean 97 02/23/20 06:00 Blood Pressure Source Automatic Cuff 02/23/20 06:00 Blood Pressure Position Supine 02/23/20 06:00 02 Sat by Pulse Oximetry 76 L 02/23/20 06:00 Oxygen Delivery Method 02/23/20 06:35 Oxygen Flow Rate (LPM) 40 02/23/20 06:00 Lab Results for Past 12 Hours 02/23/20 06:15: Specimen Source Right radial artery, O2 % 100, ABG pH 7.44, ABG pCO2 40.5, ABG pO2 59.4 L, ABG HCO3 26.8 H, ABG Total CO2 28.1 H, ABG O2 Saturation 92, ABG Base Excess 2.7 H, Walter Test Acceptable 02/23/20 05:40: Sodium 137, Potassium 3.7, Chloride 105, Carbon Dioxide 27, Anion Gap 8.7, BUN 33 H, Creatinine 0.90, Estimated Creat Clear 74, Estimated GFR 61, Est GFR ( Amer) 74 D, Glucose 133 H, Calcium 8.1 L, Total Bilirubin 0.6, AST 68 H D, ALT 53 D, Alkaline Phosphatase 121, C-Reactive Protein 64.1 H D, Total Protein 6.2 L, Albumin 2.9 L, Globulin 3.3 H, Albumin/Globulin Ratio 0.9 L 02/23/20 05:40: WBC 17.7 H D, RBC 4.54 D, Hgb 12.7, Hct 37.4, MCV 82.4, MCH 27.9, MCHC 33.8, RDW 14.5, Plt Count 319 D, MPV 7.6, Neut % (Auto) 85.9 H, Lymph % (Auto) 8.4 L, [place] % (Auto) 5.1, Eos % (Auto) 0.4, Baso % (Auto) 0.3, Neut # (Auto) 15.2 H, Lymph # (Auto) 1.5, [place] # (Auto) 0.9, Eos # (Auto) 0.1, Baso # (Auto) 0.1, Total Counted 100, Neutrophils % (Manual) 85 H, Band Neutrophils % 6.0, Lymphocytes % (Manual) 7 L, Monocytes % (Manual) 2, Platelet Estimate Normal, RBC Morphology Normal, Rouleaux 1+ My Orders Category Date Time Status XR chest portable Stat Exams 02/23/20 05:55 Completed - Radiology Findings #1 Xray Reviewed: Chest Image Reviewed: Yes I reviewed the patient's radiology image ED XR Results: Abnormal (increased congestion) Rapid Response Exam - General General appearance: lethargic - Head Head exam: normocephalic - Eye Eye exam: Present: PERRL, EOMI - ENT ENT exam: Present: mucous membranes dry - Neck Neck exam: Present: trachea midline - Respiratory Respiratory exam: Present: respiratory distress, accessory muscle use, prolonged expiratory phase - Cardiovascular Cardiovascular exam: Present: regular rate - Abdominal Exam Abdominal exam: Present: soft - Extremities Exam Extremities exam: Present: pedal edema - Neurological Exam Neurological exam: Present: alert, CN II-XII intact. Absent: oriented X3 - Skin Skin exam: Present: rash RR Procedures/Assess/Plan - Bedside Intubation Time Out Performed: No Sedative: Etomidate Mg given: 10 Paralytic: Succinylcholine Mg given: 100 Laryngoscope: [place] Tube size: 7 Tube uncuffed: No Secured Depth: 23 Secured location: teeth Placement confirmation: visualized tube passing through cords, equal breath sounds bilaterally, confirmation by capnometry Patient tolerated procedure intubation: no complications Intubation Complications: difficult intubation Additional Comments: required rosie feeback assistance to intubate - mallampati 3 - - Reevaluation(s) Time: 07:24 Reevaluation #1: still with diff with sats at this time (1) COVID-19 Status: Acute (2) Severe sepsis with acute organ dysfunction Status: Resolved (3) KEITH (acute kidney injury) Status: Resolved (4) Elevated troponin Status: Acute (5) Obesity Status: Acute Qualifiers: Obesity type: due to excess calories Obesity classification: adult class 3 (BMI >= 40) Serious obesity comorbidity presence: with serious comorbidity Body mass index: BMI 40.0-44.9 Qualified Co
--- NOTE | 2020-02-23 07:23 | HMH.ACPN2 ---
Internal Medicine - PN: Subj *Date: 02/23/20 *Time: 07:23 Interval history: Patient maintained O2 sats in the mid to high 90s after maximizing high flow nasal cannula yesterday throughout the day. Early this morning patient developed acute desaturations into the 70s and 80s. A rapid response read was called and patient was placed on BiPAP. Patient continues to denies shortness of breath despite her tachypnea. Repeat blood gas has been ordered and shows persistent hypoxemia. Exam Vital signs and Labs for Last 24 Hours: Temp Pulse Resp BP Pulse Ox 98.0 F 105 H 44 H 135/79 76 L 02/23/20 06:00 02/23/20 06:00 02/23/20 06:00 02/23/20 06:00 02/23/20 06:00 Laboratory Results - last 24 hr 02/22/20 04:30: C-Reactive Protein 151.9 H 02/22/20 06:00: Specimen Source Right radial, O2 % 90, ABG pH 7.46 H, ABG pCO2 34.0 L, ABG pO2 68.9 L, ABG HCO3 23.5, ABG Total CO2 24.5, ABG O2 Saturation 94, ABG Base Excess -0.4, Walter Test Acceptable 02/23/20 05:40: WBC 17.7 H D, RBC 4.54 D, Hgb 12.7, Hct 37.4, MCV 82.4, MCH 27.9, MCHC 33.8, RDW 14.5, Plt Count 319 D, MPV 7.6, Neut % (Auto) 85.9 H, Lymph % (Auto) 8.4 L, [place] % (Auto) 5.1, Eos % (Auto) 0.4, Baso % (Auto) 0.3, Neut # (Auto) 15.2 H, Lymph # (Auto) 1.5, [place] # (Auto) 0.9, Eos # (Auto) 0.1, Baso # (Auto) 0.1, Total Counted 100, Neutrophils % (Manual) 85 H, Band Neutrophils % 6.0, Lymphocytes % (Manual) 7 L, Monocytes % (Manual) 2, Platelet Estimate Normal, RBC Morphology Normal, Rouleaux 1+ 02/23/20 05:40: Sodium 137, Potassium 3.7, Chloride 105, Carbon Dioxide 27, Anion Gap 8.7, BUN 33 H, Creatinine 0.90, Estimated Creat Clear 74, Estimated GFR 61, Est GFR ( Amer) 74 D, Glucose 133 H, Calcium 8.1 L, Total Bilirubin 0.6, AST 68 H D, ALT 53 D, Alkaline Phosphatase 121, C-Reactive Protein 64.1 H D, Total Protein 6.2 L, Albumin 2.9 L, Globulin 3.3 H, Albumin/Globulin Ratio 0.9 L 02/23/20 06:15: Specimen Source Right radial artery, O2 % 100, ABG pH 7.44, ABG pCO2 40.5, ABG pO2 59.4 L, ABG HCO3 26.8 H, ABG Total CO2 28.1 H, ABG O2 Saturation 92, ABG Base Excess 2.7 H, Walter Test Acceptable I & O for Last 24 hours: Intake & Output 02/20/20 02/21/20 02/22/20 02/23/20 11:59 11:59 11:59 11:59 Intake Total 4533 / 4533 1125 / 1125 Output Total 800 / 1150 850 / 850 Balance 3733 / 3383 275 / 275 Weight 215 lb 3 oz 216 lb 3 oz Microbiology Reports for the Last 24 Hours: Microbiology 02/22/20 00:20 Urine,Catheterized Urine Culture - Preliminary NO GROWTH AFTER 24 HOURS 02/22/20 15:33 Nasopharyngeal Coronavirus COVID-19 PCR - Final Narrative: Patient is tachypneic with shallow respirations. Oropharynx is dry from use of BiPAP. Heart is tachycardic. Lungs have rales both anteriorly and posteriorly. Abdomen is soft. Lower extremities have no edema. Chest x-ray I believe shows worsening of the infiltrates in the right lung. ABG shows decreased PaO2 compared to yesterday. White blood cell count has risen since yesterday. Procalcitonin is pending Assessment and Plan (1) COVID-19 Status: Acute Category: Medical Code(s): U07.1 - COVID-19 (2) Severe sepsis with acute organ dysfunction Status: Resolved Category: Medical Code(s): A41.9 - Sepsis, unspecified organism; R65.20 - Severe sepsis without septic shock (3) KEITH (acute kidney injury) Status: Resolved Category: Medical Code(s): N17.9 - Acute kidney failure, unspecified (4) Elevated troponin Status: Acute Category: Medical Code(s): R77.8 - Other specified abnormalities of plasma proteins (5) Obesity Status: Acute Qualifiers: Qualified Code(s): E66.01 - Morbid (severe) obesity due to excess calories; Z68.41 - Body mass index [BMI]40.0-44.9, adult Category: Medical Code(s): E66.9 - Obesity, unspecified (6) Pneumonia due to 2019 novel coronavirus Status: Acute Category: Medical Code(s): U07.1 - COVID-19; J12.89 - Other viral
[2020-02-23 07:32] LABS: Procalcitonin 0.101 ng/mL (0.0-2.0)
--- NOTE | 2020-02-23 07:43 | PC.NURSE ---
Late entry: 0643 Dr. Bowens at bedside. 0646 Pt received versed 5mg. 0649 Propofol started at 20mcg/kg/min IV 0650 Propofol increased to 80mcg/kg/min IV 07 Pt received Versed 2mg IV. 0708 100mg succ 0710 Propofol decreased to 20mcg/kg/min Pt intubated with 7.0 ETT @ 23 at the lip on the right side at 0711.
[2020-02-23 08:06] LABS: ABG HCO3 23.6 mmhg (22.0-26.0); ABG Oxygen Saturation 85 % (90-100); ABG PH 7.29 mmol/L (7.35-7.45); ABG PO2 54.6 mmhg (80-100); ABG TCO2 25.1 mmhg (23-27)
[2020-02-23 08:08] LABS: Oxygen 100 %; PEEP 8; Source RIGHT RADIAL ARTERY; Tidal Volume 425; Vent Rate 24
[2020-02-23 08:09] LABS: ABG PCO2 50.2 mmhg (35.0-45.0)
--- NOTE | 2020-02-23 09:41 | XR_ITS ---
PROCEDURE: XR CHEST PORTABLE CLINICAL HISTORY: OG tube placement verification COMPARISON: CR XR CHEST PORTABLE from 02/22/2020 CR XR CHEST PORTABLE from 02/23/2020 CR XR CHEST PORTABLE from 02/23/2020 FINDINGS: 10:17 a.m.. Nasogastric tube has been inserted. The tip is not demonstrated but should be in the body of the stomach. Endotracheal tube tip is approximately 2.5 cm above the cyn. There remains diffuse bilateral alveolar disease. IMPRESSION: Endotracheal tube and nasogastric tube in good position with no change in the diffuse alveolar disease. Dictated by: Walter Dunne MD 02/23/2020 11:22 Walter Dunne MD in [place] 02/23/2020 11:22
--- NOTE | 2020-02-23 10:08 | HMH.PULMCON ---
*Admission Date: 02/21/20 *Reason for consult:: Acute hypoxic respiratory failure, COVID-19 pneumonia *History of present illness: Ms. Mclaughlin is a 74-year-old female with a history of hypertension, dyslipidemia COVID-19 test positive earlier this month presented to the ER with progressive worsening shortness of breath, cough and weakness. Level to the ED patient found to be hypoxic and was initiated on oxygen supplementation and was admitted to the ICU. Patient oxygen creatinine steadily increased over the weekend eventually requiring intubation this morning. Pulmonary was called for further management [facility] History Medical History: Reports:: Hyperlipidemia, Hypertension Denies:: Cancer, Diabetes Mellitus Type 1, Diabetes Mellitus Type 2, Internal Pacemaker, Lung Disease, MRSA, Seizures *Have you ever received a pneumonia vaccine?: No *Have you received a flu vaccine this season?: No Other Medical History: Denies: Blood Transfusion Reaction Laterality Cases: Bilateral: Myringotomy (Ear Tubes), Other Other Surgeries: Yes: Appendectomy, Hysterectomy-Total. No: Pacemaker Amputation: No Fractures: No - *Social History Smoking Status: Never smoker Alcohol Intake: never Substance Use Type: denies use *Occupational Status:: retired Housing: house Household Members: spouse *Travel in the last 8 weeks: None Family Hx:: Unable to obtain ROS - Review of Systems Review of systems unable to obtain as patient was intubated and sedated Meds Home Medications Medication Instructions Recorded Confirmed Type lovastatin 20 mg tablet 20 mg PO DAILY 04/21/17 02/22/20 History Glucosam/Ian-Msm1/C/Robbie/Bosw 1 each PO DAILY 10/16/17 02/21/20 History [Osteo Bi-Flex Caplet] Aspirin [Aspirin 81mg EC Tab] 81 mg PO DAILY 02/22/20 02/22/20 History Lisinopril/Hydrochlorothiazide 1 tab PO DAILY 02/22/20 02/22/20 History [Lisinopril-Hctz 20-25 mg Tab*] ondansetron HCL [Ondansetron 4mg 4 mg PO Q6HP PRN 02/22/20 02/22/20 History tab*] Allergies Allergy/AdvReac Type Severity Reaction Status Date / Time Sulfa (Sulfonamide Allergy Intermediate Hives Verified 02/21/20 14:12 Antibiotics) Exam - HENMT Exam HENMT: normocephalic, atraumatic - Neck Exam Neck:: normal visual inspection, thyroid normal, no lymphadenopathy - Respiratory Exam Comments: Intubated and sedated, bilateral coarse of breath sounds heard - Cardiovascular Exam Cardiac:: S1, S2 - GI Exam GI:: soft, no hepatosplenomegaly - Skin Exam Skin: warm, no rash - Neurological Exam Intubated and sedated - Extremities Exam Extremities: no cyanosis, no clubbing Comments: Bilateral 2+ lower extremity edema noted Internal Medicine - CN: Reslt - Labs CBC & Chem 7: 02/23/20 05:40 02/23/20 05:40 Labs: Short CBC 02/23/20 Range/Units 05:40 WBC 17.7 H D (4.8-10.8) K/mm3 Hgb 12.7 (12.2-16.2) g/dL Hct 37.4 (37.0-47.0) % Plt Count 319 D (142-424) K/mm3 BMP 02/23/20 05:40 Sodium 137 Potassium 3.7 Chloride 105 Carbon Dioxide 27 BUN 33 H Creatinine 0.90 Glucose 133 H Calcium 8.1 L Liver Function 02/23/20 Range/Units 05:40 Total Bilirubin 0.6 (0.2-1.3) mg/dl AST 68 H D (14-36) U/L ALT 53 D (12-78) U/L Alkaline Phosphatase 121 (38-126) U/L Albumin 2.9 L (3.5-5.0) g/dl - ABG Interpretation ABG results: 02/21/20 02/22/20 02/23/20 14:15 06:00 06:15 ABG pH 7.47 H 7.46 H 7.44 ABG pCO2 33.2 L 34.0 L 40.5 ABG pO2 81.3 68.9 L 59.4 L ABG HCO3 23.3 23.5 26.8 H ABG Total CO2 24.4 24.5 28.1 H ABG O2 Saturation 96 94 92 ABG Base Excess -0.4 -0.4 2.7 H 02/23/20 07:58 ABG pH 7.29 L ABG pCO2 50.2 H ABG pO2 54.6 L ABG HCO3 23.6 ABG Total CO2 25.1 ABG O2 Saturation 85 L* ABG Base Excess -3.0 L Assessment and Plan (1) COVID-19 Status: Acute Category: Medical Code(s): U07.1 - COVID-19 (2) Severe sepsis with acute org
--- NOTE | 2020-02-23 11:10 | PC.NURSE ---
Bj in surgical suite notified about consult.
--- NOTE | 2020-02-23 11:30 | PC.NURSE ---
Sputum sample taken to lab with printed order to fernando fletcher
[2020-02-23 11:50] LABS: ABG Base Excess -2.9 mmol/L (-2.4-2.3); ABG HCO3 23.5 mmhg (22.0-26.0); ABG Oxygen Saturation 96 % (90-100); ABG PCO2 48.8 mmhg (35.0-45.0); ABG PO2 87.5 mmhg (80-100)
--- NOTE | 2020-02-23 11:52 | HMH.PHACONS ---
- Pharmacy Consult Date: 02/23/20 Time: 11:52 Referring provider: DR. PANIAGUA Reason for Consult:: VANCOMYCIN DOSING Allergies and ADEs:: Allergies Allergy/AdvReac Type Severity Reaction Status Date / Time Sulfa (Sulfonamide Allergy Intermediate Hives Verified 02/21/20 14:12 Antibiotics) Home Medications:: Home Medications Medication Instructions Recorded Confirmed Type lovastatin 20 mg tablet 20 mg PO DAILY 04/21/17 02/22/20 History Glucosam/Ian-Msm1/C/Robbie/Bosw 1 each PO DAILY 10/16/17 02/21/20 History [Osteo Bi-Flex Caplet] Aspirin [Aspirin 81mg EC Tab] 81 mg PO DAILY 02/22/20 02/22/20 History Lisinopril/Hydrochlorothiazide 1 tab PO DAILY 02/22/20 02/22/20 History [Lisinopril-Hctz 20-25 mg Tab*] ondansetron HCL [Ondansetron 4mg 4 mg PO Q6HP PRN 02/22/20 02/22/20 History tab*] Height: 1.57 m Weight: 98.061 kg Laboratory Results:: Laboratory Results - last 24 hr 02/23/20 05:40: WBC 17.7 H D, RBC 4.54 D, Hgb 12.7, Hct 37.4, MCV 82.4, MCH 27.9, MCHC 33.8, RDW 14.5, Plt Count 319 D, MPV 7.6, Neut % (Auto) 85.9 H, Lymph % (Auto) 8.4 L, [place] % (Auto) 5.1, Eos % (Auto) 0.4, Baso % (Auto) 0.3, Neut # (Auto) 15.2 H, Lymph # (Auto) 1.5, [place] # (Auto) 0.9, Eos # (Auto) 0.1, Baso # (Auto) 0.1, Total Counted 100, Neutrophils % (Manual) 85 H, Band Neutrophils % 6.0, Lymphocytes % (Manual) 7 L, Monocytes % (Manual) 2, Platelet Estimate Normal, RBC Morphology Normal, Rouleaux 1+ 02/23/20 05:40: Sodium 137, Potassium 3.7, Chloride 105, Carbon Dioxide 27, Anion Gap 8.7, BUN 33 H, Creatinine 0.90, Estimated Creat Clear 74, Estimated GFR 61, Est GFR ( Amer) 74 D, Glucose 133 H, Calcium 8.1 L, Total Bilirubin 0.6, AST 68 H D, ALT 53 D, Alkaline Phosphatase 121, C-Reactive Protein 64.1 H D, Total Protein 6.2 L, Albumin 2.9 L, Globulin 3.3 H, Albumin/Globulin Ratio 0.9 L 02/23/20 05:40: Procalcitonin 0.101 02/23/20 06:15: Specimen Source Right radial artery, O2 % 100, ABG pH 7.44, ABG pCO2 40.5, ABG pO2 59.4 L, ABG HCO3 26.8 H, ABG Total CO2 28.1 H, ABG O2 Saturation 92, ABG Base Excess 2.7 H, Walter Test Acceptable 02/23/20 07:58: Specimen Source Right radial artery, O2 % 100, ABG pH 7.29 L, ABG pCO2 50.2 H, ABG pO2 54.6 L, ABG HCO3 23.6, ABG Total CO2 25.1, ABG O2 Saturation 85 L*, ABG Base Excess -3.0 L, Vent Rate 24, Tidal Volume 425, PEEP 8 Medical History: Reports:: Hyperlipidemia, Hypertension Denies:: Cancer, Diabetes Mellitus Type 1, Diabetes Mellitus Type 2, Internal Pacemaker, Lung Disease, MRSA, Seizures Assessment and Plan (1) COVID-19 Status: Acute Category: Medical Code(s): U07.1 - COVID-19 (2) Severe sepsis with acute organ dysfunction Status: Resolved Category: Medical Code(s): A41.9 - Sepsis, unspecified organism; R65.20 - Severe sepsis without septic shock (3) KEITH (acute kidney injury) Status: Resolved Category: Medical Code(s): N17.9 - Acute kidney failure, unspecified (4) Elevated troponin Status: Acute Category: Medical Code(s): R77.8 - Other specified abnormalities of plasma proteins (5) Obesity Status: Acute Qualifiers: Obesity type: due to excess calories Obesity classification: adult class 3 (BMI >= 40) Serious obesity comorbidity presence: with serious comorbidity Body mass index: BMI 40.0-44.9 Qualified Code(s): E66.01 - Morbid (severe) obesity due to excess calories; Z68.41 - Body mass index [BMI]40.0-44.9, adult Category: Medical Code(s): E66.9 - Obesity, unspecified (6) Pneumonia due to 2019 novel coronavirus Status: Acute Category: Medical Code(s): U07.1 - COVID-19; J12.89 - Other viral pneumonia (7) Hypokalemia Status: Acute Category: Medical Code(s): E87.6 - Hypokalemia (8) Acute respiratory failure due to COVID-19 Status: Acute Category: Medical Code(s): U07.1 - COVID-19; J96.00 - Acute respiratory failure, unspecified whether with hypoxia or hypercapnia (9) Acute and chronic respiratory failure wit
[2020-02-23 11:53] LABS: Allen's Test Patient Unable; Oxygen 100 %; PEEP 8; Source Right Radial; Tidal Volume 440; Vent Rate 18
--- NOTE | 2020-02-23 12:13 | XR_ITS ---
PROCEDURE: XR CHEST PORTABLE CLINICAL HISTORY: deep line placement Follow-up line placement COMPARISON: CR XR CHEST PORTABLE from 02/23/2020 CR XR CHEST PORTABLE from 02/23/2020 CR XR CHEST PORTABLE from 02/23/2020 FINDINGS: 12:26 p.m.. Left subclavian central venous line has been placed. The tip is in good position in the region the SVC. No evidence of pneumothorax. Endotracheal tube and nasogastric tube remain in good position. There remains diffuse bilateral alveolar opacification consistent with diffuse pneumonia. No acute bony abnormalities. IMPRESSION: Tubes and lines in good position. No evidence of pneumothorax. Diffuse bilateral pneumonia Dictated by: Walter Dunne MD 02/23/2020 12:50 Walter Dunne MD in [facility] 02/23/2020 12:50
--- NOTE | 2020-02-23 12:38 | P.PCN_ITS ---
[facility] Procedure Note Procedure Note:: Procedure performed: Placement of nontunneled 7.5 [place]amian triple-lumen and left subclavian vein Anesthesia: 1% Xylocaine Indications: Patient is a 74-year-old female admitted with COVID pneumonia. She has had clinical deterioration requiring pressors, sedation, and intubation with mechanical ventilation this morning. Surgery was asked to place central venous catheter. Procedure description: Patient was positioned in Trendelenburg. Left neck and chest were prepped and draped in the standard surgical fashion. Local anesthetic was infiltrated inferior to the left clavicle near the deltopectoral groove. 18-gauge needle was inserted manipulating it posterior to the clavicle. There was good return of venous blood. Guidewire was inserted. Small incision was made at the insertion site. Subcutaneous tissues were dilated. 7.5 Bahamian triple-lumen catheter was threaded over the guidewire using Seldinger technique. Guidewire was removed. Catheter was secured to the skin at approximately the 18 cm saleem with a couple of silk sutures. Dressing was applied. All ports flushed and aspirated. Chest x-ray reading pending at the time of this dictation.
--- NOTE | 2020-02-23 13:38 | DIET.NUTRFU ---
Nutritional Assessment, IP/consult completed. Critically ill obese intubated pt requiring tube feeding, recommend initiating resp. support formula. Initiate Pulmocare 1.5 at 20ml/hr and increase by 10ml q 8 hrs as tolerated to goal rate of 38ml/hr. This will provide pt with 1254kcal, 52g protein, 88g CHO, 77g fat, and 654ml free water. Additional fluid needs currently being met through free water and IVF, will monitor and adjust as indicated. Recommend water flushes of 60ml with meds and q 6 hrs. Will monitor propofol rate and adjust as indicated for additional calories.
--- NOTE | 2020-02-23 14:30 | PC.NURSE ---
wanted vent rate increased from 18 to 22, ABG to be gotten in one hour (1529)
--- NOTE | 2020-02-23 15:11 | XR_ITS ---
PROCEDURE: XR CHEST PORTABLE 1524 hours CLINICAL HISTORY: check for pneumonthorax pneumonia COMPARISON: 02/23/2020 FINDINGS: Endotracheal tube nasogastric tube left subclavian central venous line all remain in good position. There remains diffuse bilateral alveolar disease consistent with bilateral pneumonia which is probably unchanged No acute bony abnormalities. IMPRESSION: Tubes and lines in good position. Diffuse bilateral pneumonia Dictated by: Walter Dunne MD 02/23/2020 15:40 Walter Dunne MD in [facility] 02/23/2020 15:40
--- NOTE | 2020-02-23 16:19 | HMH.PHAINT ---
02/23/2020-SPOKE WITH DR. PANIAGUA, SUSIE WARD, AND MIREILLE THOMAS. DR. PANIAGUA IS GIVING ROCURONIUM 50 MG IV TO PATIENT AND SUSIE IS DOCUMENTING GIVEN BY .
[2020-02-23 16:22] LABS: Adenovirus,PCR Not Detected (NotDetected); Bordetella Pertussis Not Detected (NotDetected); Chlamydophila Pneumoniae, PCR Not Detected (NotDetected); Coronavirus 229E Not Detected (NotDetected); Coronavirus NL63 Not Detected (NotDetected); Coronavirus OC43 Not Detected (NotDetected); Coronovirus HKU1,PCR Not Detected (NotDetected); Human Metapneumovirus Not Detected (NotDetected); Influenza A, PCR Not Detected (NotDetected); Influenza AH1, 2009 Not Detected (NotDetected); Influenza AH1, PCR Not Detected (NotDetected); Influenza AH3,PCR Not Detected (NotDetected); Influenza B, PCR Not Detected (NotDetected); Mycoplasma Pneumoniae, PCR Not Detected (NotDetected); Parainfluenza 1, PCR Not Detected (NotDetected); Parainfluenza 2, PCR Not Detected (NotDetected); Parainfluenza 3, PCR Not Detected (NotDetected); Parainfluenza 4, PCR Not Detected (NotDetected); Respiratory Syncytial Virus Not Detected (NotDetected); Rhinovirus/Enterovirus Not Detected (NotDetected)
[2020-02-23 17:47] LABS: Activated Partial Thrombo Time 29.1 seconds (23.6-34.0)
[2020-02-23 18:04] LABS: ABG Base Excess -7.3 mmol/L (-2.4-2.3); ABG HCO3 21.5 mmhg (22.0-26.0); ABG Oxygen Saturation 99 % (90-100); ABG PO2 153.1 mmhg (80-100); ABG TCO2 23.5 mmhg (23-27)
[2020-02-23 18:05] LABS: Allen's Test Patient Unable; Oxygen 100 %; PEEP 8; Source Right Radial; Tidal Volume 440; Vent Rate 22
[2020-02-23 18:08] LABS: ABG PCO2 63.1 mmhg (35.0-45.0); ABG PH 7.15 mmol/L (7.35-7.45)
--- NOTE | 2020-02-23 18:39 | PC.NURSE ---
PEEP turned up to 10 per .
--- NOTE | 2020-02-23 19:37 | PC.NURSE ---
Levophed titrations 0722- initiated at 8mcg at this time, BP 73/43, HR 88 0818- titrated to 10mcg, BP 64/33, HR 76 0845- titrated to 12mcg, BP 86/64, HR 91 0940- titrated to 14mcg, BP 85/60, HR 91 0950- titrated to 16mcg, BP 88/65, HR 95 1000- titrated to 18mcg, BP 87/54, HR 96 1010- titrated to 20mcg, BP 85/59, HR 99 1415- titrated to 22mcg, BP 62/43, HR 100 1430- titrated to 24mcg, BP 82/39, HR 97 1445- titrated to 30mcg, BP 54/33, HR 69 1510- given 2000ml bolus of NS per MD order for hypotension Propofol and Fentanyl titrated to 75mcg each per Dr Mckeon order 1415- Propofol and Fentanyl titrated to 40mcg 1430- Propofol and Fentanyl titrated to 30mcg 1445- Propofol and Fentanyl titrrated to 20mcg
--- NOTE | 2020-02-23 20:55 | PC.NURSE ---
spoke with sienna in pharmacy, po sodium bicarbonate not available in omni. Requested to use sodium bicarbonate injection 8 ml mixed with 8 ml of water to be placed down N/G tube. Bicarb drip to run over 4 hours.
--- NOTE | 2020-02-23 21:57 | PC.NURSE ---
Juanita with [facility] called and stated there is no bed available at this time.
--- NOTE | 2020-02-23 22:52 | PC.NURSE ---
She continues in contact and airborne precautions. Intubated and sedated. Sedated to RASS -3. Vent settings are as follows: AC mode, TV 440, R 22, PEEP 10, 100% FiO2. She continues to be tachypneic. Lung sounds clear. Scant amount of clear secretions present via oral suction. No secretions via ETT suction. Oral care & turn and repositioned q 2 hours and PRN. HOB elevated 30 degrees. Ambu bag at bedside. Capillary refill <3. Positive radial and pedal pulses. Rectal temp was 100.4. Voiding per f/c; urine is yellow, clear. Currect GCS 7, CPOT 1. Gag reflex present. OG present with zero residual. Currently attempting to slowly wean levophed.
[2020-02-23 23:59] LABS: Activated Partial Thrombo Time 66.8 seconds (23.6-34.0)
[2020-02-24] VITALS (33 sets, daily range): BP systolic 101–141; BP diastolic 63–88; PULSE 84–104; RESP 22–48; TEMP 37.2–38.1; O2SAT 91–100; BMI 43.1; BMI 427396.2
--- NOTE | 2020-02-24 04:19 | PC.NURSE ---
Continuing to slowly wean levophed. Started on pulmocare @ 20mL/hr. NSR on telemetry. No other acute changes.
--- NOTE | 2020-02-24 06:00 | XR_ITS ---
PROCEDURE: XR CHEST PORTABLE CLINICAL HISTORY: Post Intubation Pneumonia COMPARISON: CR XR CHEST PORTABLE from 02/23/2020 CR XR CHEST PORTABLE from 02/23/2020 CR XR CHEST PORTABLE from 02/23/2020 FINDINGS: Endotracheal tube nasogastric to and left subclavian central venous line all remain in good position. The endotracheal tube tip is 3.5 cm above the cyn. Diffuse bilateral pneumonia once again noted and may be slightly worse in the right lung base. No acute bony abnormalities. IMPRESSION: Tubes and lines in good position Diffuse bilateral pneumonia slightly worse in the right lung base Dictated by: Walter Dunne MD 02/24/2020 06:01 Walter Dunne MD in [facility] 02/24/2020 06:01
[2020-02-24 06:05] LABS: Chloride 104 mmol/L (98-107); Sodium 136 mmol/L (136-145)
[2020-02-24 06:06] LABS: Basophils # 0.1 K/mm3 (0-0.2); Basophils % 0.5 % (0.1-2.0); Hematocrit 37.9 % (37.0-47.0); Hemoglobin 12.6 g/dL (12.2-16.2); Lymphocytes # 1.6 K/mm3 (0.7-4.5); Lymphocytes % 7.1 % (10-50); Mean Corpuscular HGB Conc 33.3 g/dL (31.8-35.4); Mean Corpuscular Hemoglobin 27.9 pg (27.0-31.2); Mean Corpuscular Volume 83.9 fl (81-99); Mean Platelet Volume 8.1 fl (7.4-10.4); Monocytes # 1.3 K/mm3 (0.1-1.0); Monocytes % 5.7 % (1.7-9.3); Neutrophils # 19.3 K/mm3 (1.8-7.8); Neutrophils % 86.6 % (37.0-80.0); Platelet Count 309 K/mm3 (142-424); Red Blood Count 4.52 M/mm3 (4.20-5.40); Red Cell Distribution Width 15.2 % (11.5-17.5); White Blood Count 22.3 K/mm3 (4.8-10.8)
[2020-02-24 06:08] LABS: Alanine Aminotransferase 63 U/L (12-78); Albumin Level 2.7 g/dl (3.5-5.0); Albumin/Globulin Ratio 0.8 (1.1-1.8); Alkaline Phosphatase 116 U/L (38-126); Aspartate Amino Transferase 53 U/L (14-36); Bilirubin,Total 0.6 mg/dl (0.2-1.3); Blood Urea Nitrogen 37 mg/dl (7-17); Carbon Dioxide 24 mmol/L (22.0-30.0); Creatinine Clearance Estimated 30 mL/min (50-200); Estimated Glomerular Filt Rate 44 ml/min (>60); GFR (African American) 53 ML/MIN (>60); Globulin 3.2 g/dL (1.3-3.2); Glucose 199 mg/dl (74-100); Total Protein,Serum 5.9 g/dl (6.3-8.2)
--- NOTE | 2020-02-24 06:10 | PC.NURSE ---
Juanita from [facility] called and stated no bed is available at this time.
[2020-02-24 06:11] LABS: Lactic Acid 1.8 mmol/L (0.7-2.1)
--- NOTE | 2020-02-24 06:13 | CA_ITS ---
APPROVED REPORT Bilateral Lower Extremity Venous Study for DVT. Building Drafting Officer: LILIANA Indications Lower Extremity Edema: Bilateral COvid-19, suspected PE Risk Factors Immobility HTN, hyperlipidemia, morbid obesity Vein Imaging CFV (R): compressive, spontaneous, phasic, augmentation FEM (R): compressive, spontaneous, phasic, augmentation POP (R): compressive, spontaneous, phasic, augmentation PTV (R): Thrombus GSV (R): compressive, spontaneous, phasic, augmentation SSV (R): Not Visualized Peroneals (R):Thrombus GAS (R): Not Visualized CFV (L): compressive, spontaneous, phasic, augmentation FEM (L): compressive, spontaneous, phasic, augmentation POP (L): compressive, spontaneous, phasic, augmentation PTV (L): Thrombus GSV (L): compressive, spontaneous, phasic, augmentation SSV (L): Not Visualized Peroneals (L):Thrombus GAS (L): Not Visualized Findings DVT seen in the RLE and LLE in the Peroneal veins and Posterior tibial veins of the bilateral calves. No SVT seen on today's study. Limited scanning due to patient immobility and body habitus. Conclusion DVT seen in the RLE and LLE in the Peroneal veins and Posterior tibial veins of the bilateral calves. No SVT seen on today's study. Limited scanning due to patient immobility and body habitus. Electronically signed by : Walter Dunne MD 02/24/2020 17:21:59
--- NOTE | 2020-02-24 06:21 | HMH.ACPN2 ---
Internal Medicine - PN: Subj *Date: 02/24/20 *Time: 06:21 Interval history: Patient was successfully intubated yesterday morning and much of the day was spent stabilizing the patient. Beginning in the evening and overnight there were no acute events. Patient remains sedated with propofol and fentanyl. Levophed is being used to keep patient's blood pressures acceptable. Patient is on broad-spectrum antibiotics. Echocardiogram revealed an enlarged right ventricle as well as flattening of the septum consistent with increased pressure within the right ventricle and it is now suspected patient may have a pulmonary embolism. Patient has been started on a heparin drip. Patient is also receiving bicarbonate drip due to her mixed metabolic and respiratory acidosis Exam Vital signs and Labs for Last 24 Hours: Temp Pulse Resp BP Pulse Ox 99.6 F 84 30 H 106/66 L 99 02/24/20 06:00 02/24/20 06:00 02/24/20 06:00 02/24/20 06:00 02/24/20 06:00 Laboratory Results - last 24 hr 02/23/20 05:40: Procalcitonin 0.101 02/23/20 06:15: Specimen Source Right radial artery, O2 % 100, ABG pH 7.44, ABG pCO2 40.5, ABG pO2 59.4 L, ABG HCO3 26.8 H, ABG Total CO2 28.1 H, ABG O2 Saturation 92, ABG Base Excess 2.7 H, Walter Test Acceptable 02/23/20 07:58: Specimen Source Right radial artery, O2 % 100, ABG pH 7.29 L, ABG pCO2 50.2 H, ABG pO2 54.6 L, ABG HCO3 23.6, ABG Total CO2 25.1, ABG O2 Saturation 85 L*, ABG Base Excess -3.0 L, Vent Rate 24, Tidal Volume 425, PEEP 8 02/23/20 11:47: Specimen Source Right radial, O2 % 100, ABG pH 7.30 L, ABG pCO2 48.8 H, ABG pO2 87.5, ABG HCO3 23.5, ABG Total CO2 25.0, ABG O2 Saturation 96, ABG Base Excess -2.9 L, Walter Test Patient unable, Vent Rate 18, Tidal Volume 440, PEEP 8 02/23/20 13:45: Chlamy pneumoniae PCR Not detected, Adenovirus (PCR) Not detected, B. pertussis DNA (PCR) Not detected, Coronavirus OC43 (PCR) Not detected, Coronavirus HKU1 (PCR) Not detected, Coronavirus 229E (PCR) Not detected, Coronavirus NL63 (PCR) Not detected, Human Metapneumovir PCR Not detected, Influenza A (H1) PCR Not detected, Influ A (H1N1/09) PCR Not detected, Influenza A (H3) PCR Not detected, Influenza Type A (PCR) Not detected, Influenza Type B (PCR) Not detected, M. pneumoniae (PCR) Not detected, Parainfluenza 1 (PCR) Not detected, Parainfluenza 2 (PCR) Not detected, Parainfluenza 3 (PCR) Not detected, Parainfluenza 4 (PCR) Not detected, RSV (PCR) Not detected, Entero/Rhino (PCR) Not detected 02/23/20 17:10: APTT 29.1 02/23/20 18:01: Specimen Source Right radial, O2 % 100, ABG pH 7.15 L*, ABG pCO2 63.1 H, ABG pO2 153.1 H, ABG HCO3 21.5 L, ABG Total CO2 23.5, ABG O2 Saturation 99, ABG Base Excess -7.3 L, Walter Test Patient unable, Vent Rate 22, Tidal Volume 440, PEEP 8 02/23/20 23:10: APTT 66.8 H* D I & O for Last 24 hours: Intake & Output 02/21/20 02/22/20 02/23/20 02/24/20 11:59 11:59 11:59 11:59 Intake Total 4533 / 4533 1125 / 1125 4693.421 / 4693.421 Output Total 800 / 1150 1500 / 1500 634 / 634 Balance 3733 / 3383 -375 / -375 4059.421 / 4059.421 Weight 215 lb 3 oz 216 lb 3 oz 234 lb 8 oz Microbiology Reports for the Last 24 Hours: Microbiology 02/22/20 00:20 Urine,Catheterized Urine Culture - Final NO GROWTH AFTER 48 HOURS 02/23/20 08:15 Aspirate - Aspirate Gram Stain - Final 02/21/20 14:10 Blood Blood Culture - Preliminary NO GROWTH AFTER 48 HOURS 02/21/20 14:10 Blood Blood Culture - Preliminary NO GROWTH AFTER 48 HOURS Narrative: Patient is sedated. She is overbreathing the vent, but appears comfortable this morning. She does not respond to verbal or tactile stimulus. Lungs have coarse rales throughout both lungs anteriorly and posteriorly. Heart has a regular rate and rhythm. Abdomen is soft. Lower extremities do not have any significant edema. Dutton catheter is in place. Labs are pending at this time
--- NOTE | 2020-02-24 06:25 | HMH.DCSUM ---
General - General Admission date:: 02/21/20 HPI HPI: this pt with recent positive covid-19 test earlier this week has been progressive weak with sob and [employer] cough - pt presented to the ed -74-year-old female with a history of hypertension, hyperlipidemia and diagnosis of COVID-19 1 week ago presenting with 1 week history of worsening shortness of breath. Hypoxic on arrival to the 60s and speaking in short sentences. No fever, chills, nausea, vomiting, chest pain, cough. The symptoms have improved since her initial diagnosis, however she has worsening shortness of breath even at rest. -year-old female Covid positive presenting hypoxic. Requiring nonrebreather on arrival and subsequently needing BiPAP. Was only moved out of the emergency department to the ICU to receive BiPAP in an isolation room. I emergently spoke to her primary care physician who will assume care after she is initially stabilized. Patient's oxygenation improved to the high 90s on nonrebreather and continued to improve symptomatically while on BiPAP while he briefly stayed with her in the ICU. I escorted her from the emergency department to the ICU without any adverse events. Labs ordered and initiated including CBC, CMP, troponins and xrays Hospital Course Hospital Course: Patient was admitted and placed on high flow nasal cannula which helped patient maintain sats in the mid 90s. However despite use of high flow nasal cannula patient remained tachypneic. Other vitals remained stable. Patient was started on dexamethasone 6 mg IV daily on February 20 and received Remdesivir beginning on February 21 for her COVID-19 pneumonia. Serial chest x-rays did not show any improvement in bilateral infiltrates on subsequent days of admission. On the morning of February 22 patient became unable to maintain O2 sats with high flow nasal cannula. Patient had increased work of breathing and she was intubated. Much of the day on February 22 was spent stabilizing the patient. She required both propofol and fentanyl for sedation. Sedation caused hypotension and she was placed on Levophed which maintained her blood pressures. Patient did receive a 2 L normal saline fluid bolus once we were assured her ejection fraction was normal. However it was also discovered that she had increased right ventricular dimensions flat, flattening of the intraventricular septum and increased right ventricular pressures which raise suspicion for pulmonary embolism. Patient was started on a heparin drip for potential pulmonary embolism. By the evening of February 22 patient was more stable with pulse returning to normal. Patient continually over breathe the vent although respirations were in the mid to high 20s as opposed to 30s and 40s on admission. Pulmonology service was consulted and were very helpful in managing the patient. Transfer to a facility where prone positioning is practiced was recommended and was arranged. On the morning of February 23 PaO2 on blood gas was greater than 200 and patient's FiO2 was decreased to 70% and later 50%. FiO2 remained at 50% and the remainder of hospitalization and prior to transfer. On February 23 patient underwent venous Dopplers of the lower extremities due to suspected DVT/pulmonary embolism. Patient had bilateral lower extremity peroneal and posterior tibial DVTs. Echocardiogram showed intraventricular septal flattening and dilated right ventricle. On February 24 patient remained stable on the vent. She is continued to require propofol and fentanyl for sedation. She was receiving Pulmocare tube feeds at 38 mL/h. She was receiving Levophed for pressure support at 12 mcg/min. She remained on heparin drip. Objective Vital signs: Temp Pulse Resp BP Pulse Ox 99.6 F 84 30 H 106/66 L 99 02/24/20 06:00 02/24/20 06:00 02/24/20 06:00 02/24/20 06:00 02/24/20 06:00 Results Labs on day of discharge: Labs from last 24 hours 02/24/20
[2020-02-24 06:55] LABS: MANUAL DIFFERENTIAL MANUAL DIFFERENTIAL (MANUAL DIFF)
[2020-02-24 06:56] LABS: ABG Base Excess -2.9 mmol/L (-2.4-2.3); ABG HCO3 23.1 mmhg (22.0-26.0); ABG Oxygen Saturation 99 % (90-100); ABG PCO2 45.3 mmhg (35.0-45.0); ABG PH 7.33 mmol/L (7.35-7.45); ABG PO2 263.6 mmhg (80-100); ABG TCO2 24.5 mmhg (23-27)
[2020-02-24 06:57] LABS: Oxygen 100 %; PEEP 10; Tidal Volume 440; Vent Rate 22
[2020-02-24 06:58] LABS: Allen's Test ACCEPTABLE; Source R RADIAL
[2020-02-24 07:05] LABS: Activated Partial Thrombo Time 72.9 seconds (23.6-34.0)
[2020-02-24 07:32] LABS: Calcium 7.2 mg/dl (8.4-10.2)
[2020-02-24 08:19] LABS: Lymphocytes % 17 % (10-50); Monocytes % 3 % (2-9); Neutrophils % 80 % (42-76); Platelet Estimate Normal; RBC Morphology Normal; Total Cells Counted 100
--- NOTE | 2020-02-24 08:46 | PC.NURSE ---
Spoke to [facility] there are no beds at this time.
--- NOTE | 2020-02-24 08:52 | PC.NURSE ---
weight 233.7. Bed scale 3402
--- NOTE | 2020-02-24 09:50 | HMH.PHAHEP ---
[facility] Pharmacy Heparin Dosing - Demographic Data Admission date:: 02/24/20 Date: 02/24/20 Time: 09:50 Allergies/Adverse Reactions: Allergies Allergy/AdvReac Type Severity Reaction Status Date / Time Sulfa (Sulfonamide Allergy Intermediate Hives Verified 02/21/20 14:12 Antibiotics) Height: 1.57 m Weight: 106 kg - Indication Medication therapy:: Heparin Current Indications:: POSSIBLE CLOTS Patient Problems: Current Active Problems Acute and chronic respiratory failure with hypoxia (Acute) COVID-19 (Acute) Elevated troponin (Acute) Obesity (Acute) Pneumonia due to 2019 novel coronavirus (Acute) Hypokalemia (Acute) Acute respiratory failure due to COVID-19 (Acute) CVA?: No Bleeding problem?: No Kidney disease?: No OH?: No Desired PTT range:: 50-70 seconds - Labs Anticoagulation Lab Results:: 02/24/20 05:45 Hgb 12.6 Hct 37.9 Plt Count 309 - Monitoring Dose Monitor 1 Date: 02/23/20 Time: 17:10 PTT Result:: PTT 29.1 Infusion Rate:: HEPARIN 1300 UNITS/HR 26 ML/HR Comment:: 5000 UNIT BOLUS Dose Monitor 2 Date: 02/23/20 Time: 23:10 PTT Result:: PTT 66.8 Infusion Rate:: HEPARIN 1300 UNITS/HR 26 ML/HR Dose Monitor 3 Date: 02/24/20 Time: 06:06 PTT Result:: PTT 72.9 Infusion Rate:: HEPARIN 1250 UNITS/HR 25 ML/HR Dose Monitor 4 Date: 02/24/20 Time: 13:00 PTT Result:: PTT 57.2 Infusion Rate:: HEPARIN 1300 UNITS/HR 26 ML/HR Dose Monitor 5 Date: 02/24/20 Time: 20:00 PTT Result:: PTT 52.3 Infusion Rate:: 1300 UNITS/HR 26 ML/HR Dose Monitor 6 Date: 02/25/20 Time: 03:00 PTT Result:: PTT 58.0 Infusion Rate:: HEPARIN 1350 UNITS/HR 27 ML/HR Dose Monitor 7 Date: 02/25/20 Time: 09:30 PTT Result:: PTT 45.0 Infusion Rate:: HEPARIN 1450 UNITS/HR 29 ML/HR Dose Monitor 8 Date: 02/25/20 Time: 17:30 PTT Result:: PTT 53.2 Infusion Rate:: HEPARIN 1450 UNITS/HR 29 ML/HR - Core Measures Is INR > or = 2 at discharge?: No Most Recent Labs:: Laboratory Results - last 24 hr 02/23/20 11:47: Specimen Source Right radial, O2 % 100, ABG pH 7.30 L, ABG pCO2 48.8 H, ABG pO2 87.5, ABG HCO3 23.5, ABG Total CO2 25.0, ABG O2 Saturation 96, ABG Base Excess -2.9 L, Walter Test Patient unable, Vent Rate 18, Tidal Volume 440, PEEP 8 02/23/20 13:45: Chlamy pneumoniae PCR Not detected, Adenovirus (PCR) Not detected, B. pertussis DNA (PCR) Not detected, Coronavirus OC43 (PCR) Not detected, Coronavirus HKU1 (PCR) Not detected, Coronavirus 229E (PCR) Not detected, Coronavirus NL63 (PCR) Not detected, Human Metapneumovir PCR Not detected, Influenza A (H1) PCR Not detected, Influ A (H1N1/09) PCR Not detected, Influenza A (H3) PCR Not detected, Influenza Type A (PCR) Not detected, Influenza Type B (PCR) Not detected, M. pneumoniae (PCR) Not detected, Parainfluenza 1 (PCR) Not detected, Parainfluenza 2 (PCR) Not detected, Parainfluenza 3 (PCR) Not detected, Parainfluenza 4 (PCR) Not detected, RSV (PCR) Not detected, Entero/Rhino (PCR) Not detected 02/23/20 17:10: APTT 29.1 02/23/20 18:01: Specimen Source Right radial, O2 % 100, ABG pH 7.15 L*, ABG pCO2 63.1 H, ABG pO2 153.1 H, ABG HCO3 21.5 L, ABG Total CO2 23.5, ABG O2 Saturation 99, ABG Base Excess -7.3 L, Walter Test Patient unable, Vent Rate 22, Tidal Volume 440, PEEP 8 02/23/20 23:10: APTT 66.8 H* D 02/24/20 05:45: WBC 22.3 H* D, RBC 4.52, Hgb 12.6, Hct 37.9, MCV 83.9, MCH 27.9, MCHC 33.3, RDW 15.2, Plt Count 309, MPV 8.1, Neut % (Auto) 86.6 H, Lymph % (Auto) 7.1 L, [place] % (Auto) 5.7, Eos % (Auto) 0.0 L, Baso % (Auto) 0.5, Neut # (Auto) 19.3 H, Lymph # (Auto) 1.6, [place] # (Auto) 1.3 H, Eos # (Auto) 0.0, Baso # (Auto) 0.1, Total Counted 100, Neutrophils % (Manual) 80 H, Lymphocytes % (Manual) 17, Monocytes % (Manual) 3, Platelet Estimate Normal, RBC Morphology Normal 02/24/20 05:45: Sodium 136, Potassium 4.0, Chloride 104, Carbon Dioxide 24, Anion Gap 12.0, BUN 37 H, C
--- NOTE | 2020-02-24 10:07 | HMH.PULMPN ---
Internal Medicine - PN: Subj *Date: 02/24/20 *Time: 10:07 Interval history: Patient respiratory status remained stable since yesterday. Exam - Constitutional Constitutional:: comfortable - HENMT Exam HENMT: normocephalic, atraumatic - Eye Exam Eyes:: normal appearance both eyes and related structures - Neck Exam Neck:: thyroid normal, no lymphadenopathy - Respiratory Exam Comments: Intubated and sedated, bilateral coarse breath sounds - Cardiovascular Exam Cardiac:: S1, S2 - GI Exam GI:: soft, no hepatosplenomegaly - Neurological Exam Intubated and sedated - Extremities Exam Extremities: no cyanosis, no clubbing, edema Assessment and Plan (1) COVID-19 Status: Acute Category: Medical Code(s): U07.1 - COVID-19 (2) Severe sepsis with acute organ dysfunction Status: Resolved Category: Medical Code(s): A41.9 - Sepsis, unspecified organism; R65.20 - Severe sepsis without septic shock (3) KEITH (acute kidney injury) Status: Resolved Category: Medical Code(s): N17.9 - Acute kidney failure, unspecified (4) Elevated troponin Status: Acute Category: Medical Code(s): R77.8 - Other specified abnormalities of plasma proteins (5) Obesity Status: Acute Qualifiers: Obesity type: due to excess calories Obesity classification: adult class 3 (BMI >= 40) Serious obesity comorbidity presence: with serious comorbidity Body mass index: BMI 40.0-44.9 Qualified Code(s): E66.01 - Morbid (severe) obesity due to excess calories; Z68.41 - Body mass index [BMI]40.0-44.9, adult Category: Medical Code(s): E66.9 - Obesity, unspecified (6) Pneumonia due to 2019 novel coronavirus Status: Acute Category: Medical Code(s): U07.1 - COVID-19; J12.89 - Other viral pneumonia (7) Hypokalemia Status: Acute Category: Medical Code(s): E87.6 - Hypokalemia (8) Acute respiratory failure due to COVID-19 Status: Acute Category: Medical Code(s): U07.1 - COVID-19; J96.00 - Acute respiratory failure, unspecified whether with hypoxia or hypercapnia (9) Acute and chronic respiratory failure with hypoxia Status: Acute Category: Medical Code(s): J96.21 - Acute and chronic respiratory failure with hypoxia (10) Pulmonary embolism Status: Suspected Category: Medical Code(s): I26.99 - Other pulmonary embolism without acute cor pulmonale - Assessment and plan all Dx Assessment and Plan for all problems:: #Acute hypoxic respiratory failure: #COVID-19 pneumonia: 74-year-old female recently tested positive for COVID-19 presents with worsening respiratory failure declining since admission eventually needing intubation this morning. Chest x-ray showed bilateral diffuse pulmonary infiltrates. Went to worsening respiratory failure patient was intubated on 02/23/2020 and needing high vent settings since then. Antibiotics were changed to vancomycin and cefepime from ceftriaxone yesterday Interval update: Due to high concern for PE patient was initiated on heparin drip yesterday, and Doppler of lower extremity after that showed DVT. Echo showed severe RV strain with RV diameter twice the size of the LV. Respiratory viral panel negative Oxygen requirements improving, PaO2 was on this morning ABG improved from yesterday, FiO2 on the vent settings changed decreased to 70%. PEEP increased to 10, patient remains on 440 of tidal volume, overbreathing the vent. Compliance improved, plateau pressure at 25 this morning Overall patient respiratory status critical but improving oxygen requirements. Hemodynamically unstable, on high pressor requirements at 24 mcg of Levophed. Lactate normal morning at 1.8. Cultures so far are unyielding, will continue broad-spectrum antibiotics for now Plan: -Continue vancomycin, cefepime along with azithromycin -Lasix 60 mg IV once -Continue remdesivir and dexamethasone for COVID-19 pneumonia -Deep sedation with lung protective ventilation, RASS goal of -3-4 a
--- NOTE | 2020-02-24 10:48 | PC.NURSE ---
1000-Levophed titrated to 16mcg at this time, BP 126/78 MAP 88
--- NOTE | 2020-02-24 11:29 | PC.NURSE ---
1130-Levophed increased to 18mcg at this time, BP 93/58, MAP 66
--- NOTE | 2020-02-24 13:09 | PC.NURSE ---
Patient coughing and moving right arm, CPOT score 2, increased fentanyl and propofol to 25mcg each at this time
--- NOTE | 2020-02-24 13:12 | PC.NURSE ---
1300-RT at bedside to decrease FiO2 to 50% per Dr Kohler order, RT to draw ABG in one hour post changes
--- NOTE | 2020-02-24 13:27 | PC.NURSE ---
Patients at beside this am in full PPE, took patients belongings home with him including cell phone and glasses
[2020-02-24 13:33] LABS: Activated Partial Thrombo Time 57.2 seconds (23.6-34.0)
[2020-02-24 14:41] LABS: ABG Base Excess -3.1 mmol/L (-2.4-2.3); ABG HCO3 21.4 mmhg (22.0-26.0); ABG Oxygen Saturation 97 % (90-100); ABG PCO2 33.6 mmhg (35.0-45.0); ABG PH 7.42 mmol/L (7.35-7.45); ABG PO2 84.1 mmhg (80-100); ABG TCO2 22.4 mmhg (23-27)
[2020-02-24 14:42] LABS: Allen's Test ACCEPTABLE; Oxygen 50 %; PEEP 10; Tidal Volume 440; Vent Rate 22
[2020-02-24 14:43] LABS: Source R RADIAL
--- NOTE | 2020-02-24 15:10 | PC.NURSE ---
Patient resting in bed with eyes closed, CPOT score 0 at this time, RASS score -4, perrla, pupils 2+, HR reg, no edema noted, lung sounds reveal rhonchi t/o, current vent settings, AC, TV 440, Rate 22, PEEP 10, FiO2 50%. Pt remains on levophed at 18mcg, sedated with propofol and fentanyl. Pt has been turned and provided oral care q2h, abd soft and nontender, hypoactive bowel sounds in all quads, OG tube present with pulmocare infusing at goal rate of 38ml/hr, no GRV noted this shift, peripheal pulses 2+. L SC TLDL in place with dsg intact no bleeding noted from site, still awaiting transfer to other facility for higher level of care, will continue to montior closely for changes.
--- NOTE | 2020-02-24 17:54 | PC.NURSE ---
1600- Levophed titrated to 16mcg at this time
--- NOTE | 2020-02-24 18:10 | PC.NURSE ---
1800- Levophed titrated to 14mcg, BP 120/80, MAP 87
[2020-02-24 20:44] LABS: Activated Partial Thrombo Time 52.3 seconds (23.6-34.0)
--- NOTE | 2020-02-24 21:04 | PC.NURSE ---
Susana from [facility] called at this time and stated that no beds are available at this time.
--- NOTE | 2020-02-24 22:23 | PC.NURSE ---
She is intubated and sedated. Continues in contact and airborne precautions. Vent settings are as follows: AC mode, TV 440, PEEP 10, Rate 22, FiO2 50%. 7.0 ETT is midline. She is receiving oral care and turning and repositioning q 2 hours and PRN. Continues to be tachypneic. HOB elevated 30 degrees. Ambu bag at bedside. Skin is cool to touch. Positive radial and pedal pulses. Capillary refill <3. Generalized edema and facial flushing noted. Gag reflex present. Withdraws to pain. GCS 6. Urine in f/c is yellow, clear.
[2020-02-25] VITALS (32 sets, daily range): BP systolic 94–120; BP diastolic 53–74; PULSE 69–90; RESP 24–36; TEMP 37.1–37.7; O2SAT 95–98; BMI 40.8
--- NOTE | 2020-02-25 03:10 | PC.NURSE ---
Kendrick with called and stated that there is no bed available at this time.
[2020-02-25 05:30] LABS: Chloride 102 mmol/L (98-107); Potassium 3.9 mmoL/L (3.5-5.1); Sodium 137 mmol/L (136-145)
[2020-02-25 05:32] LABS: Blood Urea Nitrogen 34 mg/dl (7-17); Creatinine Clearance Estimated 36 mL/min (50-200); Estimated Glomerular Filt Rate 61 ml/min (>60); GFR (African American) 74 ML/MIN (>60)
[2020-02-25 05:33] LABS: Alanine Aminotransferase 47 U/L (12-78); Albumin Level 2.7 g/dl (3.5-5.0); Albumin/Globulin Ratio 0.9 (1.1-1.8); Alkaline Phosphatase 127 U/L (38-126); Anion Gap 10.9 mEq/L (5-15); Aspartate Amino Transferase 36 U/L (14-36); Bilirubin,Total 0.6 mg/dl (0.2-1.3); Calcium 7.4 mg/dl (8.4-10.2); Carbon Dioxide 28 mmol/L (22.0-30.0); Globulin 3.1 g/dL (1.3-3.2); Glucose 178 mg/dl (74-100); Total Protein,Serum 5.8 g/dl (6.3-8.2)
--- NOTE | 2020-02-25 06:00 | XR_ITS ---
PROCEDURE: XR CHEST PORTABLE 0532 hours CLINICAL HISTORY: Post Intubation Pneumonia COMPARISON: CR XR CHEST PORTABLE from 02/23/2020 CR XR CHEST PORTABLE from 02/23/2020 CR XR CHEST PORTABLE from 02/24/2020 FINDINGS: Endotracheal tube nasogastric tube left subclavian central venous line all remain in good position. The endotracheal tube tip is 4 cm above the cyn. No evidence of pneumothorax There is diffuse bilateral pneumonia overall not significantly changed. IMPRESSION: No change diffuse bilateral pneumonia. Tubes and lines are in good position. Dictated by: Walter Dunne MD 02/25/2020 05:58 Walter Dunne MD in [facility] 02/25/2020 05:58
[2020-02-25 06:32] LABS: ABG Base Excess -0.4 mmol/L (-2.4-2.3); ABG HCO3 23.7 mmhg (22.0-26.0); ABG Oxygen Saturation 97 % (90-100); ABG PCO2 35.4 mmhg (35.0-45.0); ABG PH 7.44 mmol/L (7.35-7.45); ABG PO2 95.4 mmhg (80-100); ABG TCO2 24.8 mmhg (23-27)
--- NOTE | 2020-02-25 06:32 | HMH.ACPN2 ---
Internal Medicine - PN: Subj *Date: 02/25/20 *Time: 06:33 Interval history: Patient remains sedated on the vent. Over the last 24 hours FiO2 was able to be decreased from 100 down to 50%. Patient continues to breathe above the vent. No other issues overnight. Exam Vital signs and Labs for Last 24 Hours: Temp Pulse Resp BP Pulse Ox 99.4 F 82 29 H 109/68 L 98 02/25/20 06:00 02/25/20 06:00 02/25/20 06:00 02/25/20 06:00 02/25/20 06:00 Laboratory Results - last 24 hr 02/24/20 05:45: WBC 22.3 H* D, RBC 4.52, Hgb 12.6, Hct 37.9, MCV 83.9, MCH 27.9, MCHC 33.3, RDW 15.2, Plt Count 309, MPV 8.1, Neut % (Auto) 86.6 H, Lymph % (Auto) 7.1 L, [place] % (Auto) 5.7, Eos % (Auto) 0.0 L, Baso % (Auto) 0.5, Neut # (Auto) 19.3 H, Lymph # (Auto) 1.6, [place] # (Auto) 1.3 H, Eos # (Auto) 0.0, Baso # (Auto) 0.1, Total Counted 100, Neutrophils % (Manual) 80 H, Lymphocytes % (Manual) 17, Monocytes % (Manual) 3, Platelet Estimate Normal, RBC Morphology Normal 02/24/20 05:45: Sodium 136, Potassium 4.0, Chloride 104, Carbon Dioxide 24, Anion Gap 12.0, BUN 37 H, Creatinine 1.20 H D, Estimated Creat Clear 30, Estimated GFR 44 L, Est GFR ( Amer) 53 L D, Glucose 199 H, Calcium 7.2 L D, Total Bilirubin 0.6, AST 53 H, ALT 63, Alkaline Phosphatase 116, Total Protein 5.9 L, Albumin 2.7 L, Globulin 3.2, Albumin/Globulin Ratio 0.8 L 02/24/20 06:00: Specimen Source R radial, O2 % 100, ABG pH 7.33 L, ABG pCO2 45.3 H, ABG pO2 263.6 H, ABG HCO3 23.1, ABG Total CO2 24.5, ABG O2 Saturation 99, ABG Base Excess -2.9 L, Walter Test Acceptable, Vent Rate 22, Tidal Volume 440, PEEP 10 02/24/20 06:06: APTT 72.9 H* 02/24/20 13:00: APTT 57.2 H* D 02/24/20 14:38: Specimen Source R radial, O2 % 50, ABG pH 7.42, ABG pCO2 33.6 L, ABG pO2 84.1, ABG HCO3 21.4 L, ABG Total CO2 22.4 L, ABG O2 Saturation 97, ABG Base Excess -3.1 L, Walter Test Acceptable, Vent Rate 22, Tidal Volume 440, PEEP 10 02/24/20 20:05: APTT 52.3 H* 02/25/20 02:50: APTT 58.0 H* D 02/25/20 04:30: Sodium 137, Potassium 3.9, Chloride 102, Carbon Dioxide 28, Anion Gap 10.9, BUN 34 H, Creatinine 0.90 D, Estimated Creat Clear 36, Estimated GFR 61, Est GFR ( Amer) 74 D, Glucose 178 H, Calcium 7.4 L, Total Bilirubin 0.6, AST 36 D, ALT 47 D, Alkaline Phosphatase 127 H, Total Protein 5.8 L, Albumin 2.7 L, Globulin 3.1, Albumin/Globulin Ratio 0.9 L I & O for Last 24 hours: Intake & Output 02/22/20 02/23/20 02/24/20 02/25/20 11:59 11:59 11:59 11:59 Intake Total 4533 / 4533 1125 / 1125 6460.421 / 6846.421 2145.912 / 2145.912 Output Total 800 / 1150 1500 / 1500 1459 / 1659 1440 / 1440 Balance 3733 / 3383 -375 / -375 5001.421 / 5187.421 705.912 / 705.912 Weight 215 lb 3 oz 216 lb 3 oz 233 lb 11.04 oz 222 lb 1 oz Narrative: Patient is sedated. She makes no response to verbal or tactile stimulus. ET tube is in place. Neck is supple. Lungs are coarse both anteriorly and posteriorly with rales posteriorly. Heart has a regular rate and rhythm. Abdomen is soft. Patient has trace edema of the hands, posterior lower extremities and ankles. Current drips: Propofol Fentanyl Levophed at 12 mcg/min Pulmocare at 38 mL/h Heparin Venous Doppler performed yesterday shows bilateral lower extremity DVTs in the peroneal veins and posterior tibial veins Assessment and Plan (1) Pneumonia due to 2019 novel coronavirus Status: Acute Category: Medical Code(s): U07.1 - COVID-19; J12.89 - Other viral pneumonia (2) COVID-19 Status: Acute Category: Medical Code(s): U07.1 - COVID-19 (3) Severe sepsis with acute organ dysfunction Status: Resolved Category: Medical Code(s): A41.9 - Sepsis, unspecified organism; R65.20 - Severe sepsis without septic shock (4) KEITH (acute kidney injury) Status: Resolved Category: Medical Code(s): N17.9 - Acute kidney failure, unspecified (5) Elevated troponin Status: Acute Category: Medical Code(s): R77.8 - Other specified abnormalities of plasma proteins
--- NOTE | 2020-02-25 06:34 | PC.NURSE ---
Susana with [facility] called at this time and stated she is next on their list.
[2020-02-25 06:45] LABS: Oxygen 50 %; PEEP 10; Tidal Volume 440; Vent Rate 22
[2020-02-25 06:46] LABS: Source Right Radial
[2020-02-25 07:01] LABS: Basophils # 0.1 K/mm3 (0-0.2); Basophils % 0.3 % (0.1-2.0); Eosinophils # 0.1 K/mm3 (0.0-0.4); Eosinophils % 0.2 % (0.1-12.0); Hemoglobin 11.5 g/dL (12.2-16.2); Lymphocytes # 1.3 K/mm3 (0.7-4.5); Mean Corpuscular HGB Conc 31.8 g/dL (31.8-35.4); Mean Corpuscular Volume 84.9 fl (81-99); Monocytes % 3.5 % (1.7-9.3); Neutrophils # 24.6 K/mm3 (1.8-7.8); Neutrophils % 91.1 % (37.0-80.0); Platelet Count 293 K/mm3 (142-424); Red Blood Count 4.24 M/mm3 (4.20-5.40); Red Cell Distribution Width 14.9 % (11.5-17.5)
[2020-02-25 07:04] LABS: MANUAL DIFFERENTIAL MANUAL DIFFERENTIAL (MANUAL DIFF)
--- NOTE | 2020-02-25 09:11 | PC.NURSE ---
notified lab that aptt is ready to be picked up
[2020-02-25 09:57] LABS: Lymphocytes % 9 % (10-50); Monocytes % 3 % (2-9); Neutrophils % 88 % (42-76); Nucleated Red Blood Cells 1; Platelet Estimate Normal; Total Cells Counted 100
[2020-02-25 09:58] LABS: Hypochromasia 1+
--- NOTE | 2020-02-25 10:00 | PC.NURSE ---
Per Dr Kohler, lower peep to 8 2-3 hrs after lasix if O2 remains above 95%
--- NOTE | 2020-02-25 10:37 | HMH.PULMPN ---
Internal Medicine - PN: Subj *Date: 02/25/20 *Time: 15:31 Interval history: Acute respiratory events overnight, oxygen requirements improving. Patient still needing high pressor requirements. Exam - Constitutional Constitutional:: comfortable - HENMT Exam HENMT: normocephalic, atraumatic - Neck Exam Neck:: thyroid normal, no lymphadenopathy - Respiratory Exam Comments: Bilateral coarse breath sounds - Cardiovascular Exam Cardiac:: S1, S2 - GI Exam GI:: soft, no hepatosplenomegaly - Skin Exam Skin: warm, no rash - Neurological Exam Intubated and sedated - Extremities Exam Extremities: no cyanosis, no clubbing, edema Assessment and Plan (1) COVID-19 Status: Acute Category: Medical Code(s): U07.1 - COVID-19 (2) Severe sepsis with acute organ dysfunction Status: Resolved Category: Medical Code(s): A41.9 - Sepsis, unspecified organism; R65.20 - Severe sepsis without septic shock (3) KEITH (acute kidney injury) Status: Resolved Category: Medical Code(s): N17.9 - Acute kidney failure, unspecified (4) Elevated troponin Status: Acute Category: Medical Code(s): R77.8 - Other specified abnormalities of plasma proteins (5) Obesity Status: Acute Qualifiers: Obesity type: due to excess calories Obesity classification: adult class 3 (BMI >= 40) Serious obesity comorbidity presence: with serious comorbidity Body mass index: BMI 40.0-44.9 Qualified Code(s): E66.01 - Morbid (severe) obesity due to excess calories; Z68.41 - Body mass index [BMI]40.0-44.9, adult Category: Medical Code(s): E66.9 - Obesity, unspecified (6) Pneumonia due to 2019 novel coronavirus Status: Acute Category: Medical Code(s): U07.1 - COVID-19; J12.89 - Other viral pneumonia (7) Hypokalemia Status: Acute Category: Medical Code(s): E87.6 - Hypokalemia (8) Acute respiratory failure due to COVID-19 Status: Acute Category: Medical Code(s): U07.1 - COVID-19; J96.00 - Acute respiratory failure, unspecified whether with hypoxia or hypercapnia (9) Acute and chronic respiratory failure with hypoxia Status: Acute Category: Medical Code(s): J96.21 - Acute and chronic respiratory failure with hypoxia (10) Pulmonary embolism Status: Suspected Category: Medical Code(s): I26.99 - Other pulmonary embolism without acute cor pulmonale - Assessment and plan all Dx Assessment and Plan for all problems:: #Acute hypoxic respiratory failure: #COVID-19 pneumonia: 74-year-old female recently tested positive for COVID-19 presents with worsening respiratory failure declining since admission eventually needing intubation this morning. Chest x-ray showed bilateral diffuse pulmonary infiltrates. Went to worsening respiratory failure patient was intubated on 02/23/2020 and needing high vent settings since then. Antibiotics were changed to vancomycin and cefepime from ceftriaxone. Patient also found to have RV strain and DVT and was also started on heparin on this hospital admission. Due to high concern for PE patient was initiated on heparin drip yesterday, and Doppler of lower extremity after that showed DVT. Echo showed severe RV strain with RV diameter twice the size of the LV. Respiratory viral panel negative Interval update Patient O2 requirements continue to improve, this morning on 50% FiO2 for 40 of tidal volume with a PO2 of 84, patient given a dose of Lasix and weaned PEEP to 8, patient currently on 8 of PEEP 50% FiO2 and saturating 97% Patient still needing pressors however significantly improved now on 10 mcg of Levophed. Patient still noted to have significant leukocytosis, actually worsened since yesterday which is neutrophilic predominant. Patient having low-grade fevers. We will continue to monitor if unresolved will repeat pancultures. CXR showed improving infiltrates Plan: -Continue vancomycin, cefepime -Continue remdesivir and Hydrocortisone for COVID-19 pneumonia -Wean
[2020-02-25 11:21] LABS: Procalcitonin 0.884 ng/mL (0.0-2.0)
--- NOTE | 2020-02-25 11:43 | PC.NURSE ---
per pharmacy increase heparin to 1450 units/hr (29ml/hr)
--- NOTE | 2020-02-25 13:00 | PC.NURSE ---
levophed lowered to 10 mcg/min (19mls/hr) propofol lowered to 20 mcg/kg/min (12 mls/hr)
--- NOTE | 2020-02-25 13:00 | PC.NURSE ---
levophed lowered to 10 mcg/min (19mls/hr) propofol lowered to 20 mcg/kg/hr (12 mls/hr)
--- NOTE | 2020-02-25 14:16 | PC.NURSE ---
peep lowered to [address] Kohler request this am.
[2020-02-25 14:28] LABS: Vancomycin,Trough 10.5 ug/mL (5.0-10.0)
--- NOTE | 2020-02-25 14:42 | DIET.NUTRFU ---
Pt continues on continuous tube feedings Pulmocare 1.5 at goal rate of 38ml/hr with good toleration and no GRV>60ml. She has had some hyperglycemia- 178, 199, 165, 133. 2+ edema, weight stable. Fluids adequate. No changes to regimen at this time, continuing to monitor.
--- NOTE | 2020-02-25 14:56 | HMH.PHACONS ---
- Pharmacy Consult Date: 02/25/20 Time: 14:56 Referring provider: DR. KOROMA/SIVA Reason for Consult:: VANCOMYCIN TROUGH LEVEL Allergies and ADEs:: Allergies Allergy/AdvReac Type Severity Reaction Status Date / Time Sulfa (Sulfonamide Allergy Intermediate Hives Verified 02/21/20 14:12 Antibiotics) Home Medications:: Home Medications Medication Instructions Recorded Confirmed Type lovastatin 20 mg tablet 20 mg PO DAILY 04/21/17 02/22/20 History Glucosam/Ian-Msm1/C/Robbie/Bosw 1 each PO DAILY 10/16/17 02/21/20 History [Osteo Bi-Flex Caplet] Aspirin [Aspirin 81mg EC Tab] 81 mg PO DAILY 02/22/20 02/22/20 History Lisinopril/Hydrochlorothiazide 1 tab PO DAILY 02/22/20 02/22/20 History [Lisinopril-Hctz 20-25 mg Tab*] ondansetron HCL [Ondansetron 4mg 4 mg PO Q6HP PRN 02/22/20 02/22/20 History tab*] Height: 1.57 m Weight: 100.726 kg Laboratory Results:: Laboratory Results - last 24 hr 02/24/20 20:05: APTT 52.3 H* 02/25/20 02:50: APTT 58.0 H* D 02/25/20 04:30: WBC 27.0 H*, RBC 4.24, Hgb 11.5 L, Hct 36.0 L, MCV 84.9, MCH 27.0, MCHC 31.8, RDW 14.9, Plt Count 293, MPV 9.0, Neut % (Auto) 91.1 H, Lymph % (Auto) 5.0 L, [place] % (Auto) 3.5, Eos % (Auto) 0.2, Baso % (Auto) 0.3, Neut # (Auto) 24.6 H, Lymph # (Auto) 1.3, [place] # (Auto) 1.0, Eos # (Auto) 0.1, Baso # (Auto) 0.1, Total Counted 100, Neutrophils % (Manual) 88 H, Lymphocytes % (Manual) 9 L, Monocytes % (Manual) 3, Nucleated RBCs 1, Platelet Estimate Normal, Hypochromasia 1+ 02/25/20 04:30: Sodium 137, Potassium 3.9, Chloride 102, Carbon Dioxide 28, Anion Gap 10.9, BUN 34 H, Creatinine 0.90 D, Estimated Creat Clear 36, Estimated GFR 61, Est GFR ( Amer) 74 D, Glucose 178 H, Calcium 7.4 L, Total Bilirubin 0.6, AST 36 D, ALT 47 D, Alkaline Phosphatase 127 H, Total Protein 5.8 L, Albumin 2.7 L, Globulin 3.1, Albumin/Globulin Ratio 0.9 L 02/25/20 04:30: Procalcitonin 0.884 02/25/20 06:00: Specimen Source Right radial, O2 % 50, ABG pH 7.44, ABG pCO2 35.4, ABG pO2 95.4, ABG HCO3 23.7, ABG Total CO2 24.8, ABG O2 Saturation 97, ABG Base Excess -0.4, Walter Test Unable to obtain, Vent Rate 22, Tidal Volume 440, PEEP 10 02/25/20 09:30: APTT 45.0 H D 02/25/20 13:15: Vancomycin Trough 10.5 H Medical History: Reports:: Hyperlipidemia, Hypertension Denies:: Cancer, Diabetes Mellitus Type 1, Diabetes Mellitus Type 2, Internal Pacemaker, Lung Disease, MRSA, Seizures Assessment and Plan (1) COVID-19 Status: Acute Category: Medical Code(s): U07.1 - COVID-19 (2) Severe sepsis with acute organ dysfunction Status: Resolved Category: Medical Code(s): A41.9 - Sepsis, unspecified organism; R65.20 - Severe sepsis without septic shock (3) KEITH (acute kidney injury) Status: Resolved Category: Medical Code(s): N17.9 - Acute kidney failure, unspecified (4) Elevated troponin Status: Acute Category: Medical Code(s): R77.8 - Other specified abnormalities of plasma proteins (5) Obesity Status: Acute Qualifiers: Obesity type: due to excess calories Obesity classification: adult class 3 (BMI >= 40) Serious obesity comorbidity presence: with serious comorbidity Body mass index: BMI 40.0-44.9 Qualified Code(s): E66.01 - Morbid (severe) obesity due to excess calories; Z68.41 - Body mass index [BMI]40.0-44.9, adult Category: Medical Code(s): E66.9 - Obesity, unspecified (6) Pneumonia due to 2019 novel coronavirus Status: Acute Category: Medical Code(s): U07.1 - COVID-19; J12.89 - Other viral pneumonia (7) Hypokalemia Status: Acute Category: Medical Code(s): E87.6 - Hypokalemia (8) Acute respiratory failure due to COVID-19 Status: Acute Category: Medical Code(s): U07.1 - COVID-19; J96.00 - Acute respiratory failure, unspecified whether with hypoxia or hypercapnia (9) Acute and chronic respiratory failure with hypoxia Status: Acute Category: Medical Code(s): J96.21 - Acute and chronic respiratory failure with hy
--- NOTE | 2020-02-25 14:59 | PC.NURSE ---
Addendum entered by Gena Boogie RN 02/25/20 15:52: fentanyl turned down to 15 mcg/hr Original Note: propofol turned down to 15 mcg/kg/min (9mls/hr)
--- NOTE | 2020-02-25 16:00 | PC.NURSE ---
Levophed turned down to 5mcg/min 9ml/hr)
--- NOTE | 2020-02-25 16:31 | PC.NURSE ---
Spoke w/Ms green from [facility], she states there is a bed availale in [place], I notified the family but family does not want pt to be that far from home. [facility] notified and they state they will continue to look for a bed in [facility].
--- NOTE | 2020-02-25 16:37 | PC.NURSE ---
Pt remains on the ventilator. See intervention for settings. Fentanyl and propofol weaned to where pt is resting comfortably but not deeply sedated per Dr Kohler request. Rass score of -2, cpot score of 0. Partial bed bath given today. Pt turned q2hrs and oral care provided. Dutton is to bed side draining yellow urine. 940mls out thus far. Gag reflex is intact. Scattered bruising noted to BUE. Generalized edema noted. +1 pedal pulse with toes cool to the touch. All 3 lumens to central line are patent and flushes easily. Good blood return noted. STill waiting on a bed at or [facility], neither have one available as of yet. Will continue to monitor.
[2020-02-25 17:34] LABS: Activated Partial Thrombo Time 53.2 seconds (23.6-34.0)
--- NOTE | 2020-02-25 17:36 | PC.NURSE ---
Family notified that patient will have a bed at later as has notified me that one will be available in a little bit.
--- NOTE | 2020-02-25 17:40 | PC.NURSE ---
Rosas Esquivel in pharmacy keep heparin gtt at same rate and order next aptt at midnight
--- NOTE | 2020-02-25 19:30 | PC.NURSE ---
initital assessment patient found to be breathing 35 times a minute with peak airway pressure at thirty five. sats remained 95% on 50% fio2. ogt has been pulled out and is lying on floor. fentanyl increased to 15 mcq/hr, propofol increased to 20 mcq/kg/min and levophed titrated up to 6 mcq/ min. patient has continuous grimace to face.
--- NOTE | 2020-02-25 19:49 | PC.NURSE ---
patient continues to have slight grimace on face, coughing and gagging spontaneously at times. patient suctioned by ett, copiuous amounts of blood tinged secretions obtained.
--- NOTE | 2020-02-25 21:29 | PC.NURSE ---
2044 received bed from [facility] in [facility]. report called to gerry simmons rn in [facility]. [employer] notified for air transfer. 2129 received call from [employer] that flight became unavailable and [place] [employer] flight would be coming.
--- NOTE | 2020-02-25 21:46 | PC.NURSE ---
patient coughing and breathing 30 breaths a min. patient suctioned copious amounts of blood tinged secretions obtained. diprivan drip increased to 25 mcq/kg/min.
--- NOTE | 2020-02-25 23:00 | PC.NURSE ---
2230 [employer] at bedside. all hemodynamic monitoring changed to there monitors as well as vent set up. patient tolerated transfer to [facility] without incident. ett confirmed at 23 cm at the lips upon leaving unit.
--- NOTE | 2020-02-25 23:21 | PC.NURSE ---
fentanyl drip watched with john tovar. 70 ml wasted
[2020-02-29 17:07] LABS: MRSA DNA PCR Negative
== END 2020-02-25 22:50 | disposition short-term general hospital (02) | DRG 208 ==
LOC: ER 14:48 → ICU 16:08
PROVIDERS: Internal Medicine Pulmonary Disease; Admitting Provider Emergency Medicine; Emergency Provider Physician Assistant; PCP Family Medicine; Visit Provider Family Medicine
DX: U07.1 COVID-19 (principal); J12.89 Other viral pneumonia; J96.21 Acute and chronic respiratory failure with hypoxia; A41.9 Sepsis, unspecified organism; R65.20 Severe sepsis without septic shock; I26.99 Other pulmonary embolism without acute cor pulmonale; N17.9 Acute kidney failure, unspecified; Z68.41 Body mass index [BMI] 40.0-44.9, adult; I82.443 Acute embolism and thrombosis of tibial vein, bilateral; I82.453 Acute embolism and thrombosis of peroneal vein, bilateral; E78.5 Hyperlipidemia, unspecified; E87.6 Hypokalemia; E66.01 Morbid (severe) obesity due to excess calories; Z88.2 Allergy status to sulfonamides; I10 Essential (primary) hypertension; Z79.82 Long term (current) use of aspirin; Z79.899 Other long term (current) drug therapy
CPT/HCPCS: 31500; 94002; 36556; 36415; 71045; 80053; 80202; 81001; 82803; 83605; 84145; 84484; 85007; 85025; 85730; 86140; 86328; 87040; 87070; 87077; 87081; 87086; 87205; 87486; 87581; 87633; 87641; 87798; 93005; 93306; 93970; 94003; 94640; 94760; 99282; C1751; J1956; J2704; J3370; U0003

== ENCOUNTER → 2020-04-01 12:21 | Outpatient (CLI) | payer MEDICARE, SELFPAY ==
[2020-04-01 12:54] LABS: Basophils # 0.1 K/mm3 (0-0.2); Basophils % 0.5 % (0.1-2.0); Eosinophils # 0.1 K/mm3 (0.0-0.4); Eosinophils % 1.1 % (0.1-12.0); Hematocrit 36.9 % (37.0-47.0); Hemoglobin 11.9 g/dL (12.2-16.2); Lymphocytes # 3.3 K/mm3 (0.7-4.5); Lymphocytes % 28.5 % (10-50); Mean Corpuscular HGB Conc 32.2 g/dL (31.8-35.4); Mean Corpuscular Hemoglobin 28.8 pg (27.0-31.2); Mean Corpuscular Volume 89.5 fl (81-99); Mean Platelet Volume 7.6 fl (7.4-10.4); Monocytes # 0.7 K/mm3 (0.1-1.0); Monocytes % 5.7 % (1.7-9.3); Neutrophils # 7.5 K/mm3 (1.8-7.8); Neutrophils % 64.2 % (37.0-80.0); Platelet Count 442 K/mm3 (142-424); Red Blood Count 4.12 M/mm3 (4.20-5.40); Red Cell Distribution Width 17.1 % (11.5-17.5); White Blood Count 11.6 K/mm3 (4.8-10.8)
[2020-04-01 13:34] LABS: Alanine Aminotransferase 48 U/L (12-78); Albumin Level 3.7 g/dl (3.5-5.0); Albumin/Globulin Ratio 1.2 (1.1-1.8); Alkaline Phosphatase 103 U/L (38-126); Anion Gap 9.5 mEq/L (5-15); Aspartate Amino Transferase 34 U/L (14-36); Bilirubin,Total 0.5 mg/dl (0.2-1.3); Blood Urea Nitrogen 17 mg/dl (7-17); Calcium 9.8 mg/dl (8.4-10.2); Carbon Dioxide 31 mmol/L (22.0-30.0); Chloride 100 mmol/L (98-107); Chol/HDL Ratio 3.7 (1-3.5); Cholesterol 145 mg/dl (140-200); Estimated Glomerular Filt Rate 97 ml/min (>60); GFR (African American) 118 ML/MIN (>60); Globulin 3.2 g/dL (1.3-3.2); Glucose 98 mg/dl (74-100); HDL Cholesterol 39 mg/dl (40-60); Potassium 4.5 mmoL/L (3.5-5.1); Sodium 136 mmol/L (136-145); Total Protein,Serum 6.9 g/dl (6.3-8.2); Triglycerides 162 mg/dl (30-150); VLDL Cholesterol 32 mg/dL (0-40)
[2020-04-01 13:46] LABS: Direct LDL Cholesterol 80.57 mg/dL (100-129)
[2020-04-01 13:49] LABS: Triiodothryronine (T3) Uptake 38 % (23.5-40.5)
[2020-04-01 13:50] LABS: T4 (Thyroxine) 10.5 ug/dl (5.53-11.0)
[2020-04-01 13:53] LABS: 25-OH Vitamin D, Total 41.4 ng/mL (30-100)
[2020-04-01 14:04] LABS: Thyroid Stimulating Hormone 1.48 uIU/mL (0.465-4.68)
[2020-04-01 14:25] LABS: Vitamin B12 303 pg/mL (239-931)
== END ==
PROVIDERS: Visit Provider Internal Medicine Adolescent Medicine
DX: G72.81 Critical illness myopathy (principal); E78.5 Hyperlipidemia, unspecified; J96.10 Chronic respiratory failure, unspecified whether with hypoxia or hypercapnia; Z86.711 Personal history of pulmonary embolism
CPT/HCPCS: 36415; 80053; 80061; 82306; 82607; 84436; 84443; 84479; 85025

== ENCOUNTER → 2020-05-04 09:17 | Outpatient (CLI) | payer MEDICARE, SELFPAY ==
--- NOTE | 2020-05-04 | CA_ITS ---
APPROVED REPORT EXAM: Comprehensive 2D, Doppler, and color-flow Echocardiogram Forklift Driver: Caity RCS, RVS Ht: 5 ft 0 in Wt: 220lbs BSA: 1.94 BP: 142/79 mmHg Indications: s/p COVID-19, HTN, Murmur 2D Dimensions IVSd 0.91 cm LVEF (Visual) 65.80 % PWd 0.84 cm LVDd 5.01 cm LVDs 3.19 cm LVOT 1.83 cm (M/F) 1.5-2.5 M-Mode Dimensions LA Diam 3.84 cm (1.9-4.0) Ao Diam 3.26 cm (2.0-3.7) IVSd 1.08 cm (0.6-1.1) EPSs 0.43 cm LV Diastology E Decel Time 233.00 (160-240 msec) E/A Ratio 0.56 MED E' 5.40 (< 7 cm/sec) MED A' 11.60 cm/s E'/MED E' Ratio 13.96 (>14) LAT E' 4.40 (<10 cm/sec) LAT A' 17.70 cm/s E/LAT E' Ratio 17.14 (>14) Aortic Valve AO Peak GR. 9.30 mmHg Mitral Valve MV A Velocity 135.00 (40-130 cm/s) E/A Ratio 0.56 MV Decel. Time 233.00 (160-240 ms) Pulmonary Valve WI End VMAX 191.00 cm/s Tricuspid Valve TR P. Velocity 237.00 cm/s RAP Estimate 10.00 mmHg RVSP 32.50 mmHg Left Ventricle Left atrium is mildly enlarged, left ventricle is normal size, left ventricular wall thickness is upper limit of normal, there is preserved left ventricular systolic function, visually estimated ejection fraction 55% with no regional wall motion abnormality. Diastolic parameters are inconclusive. Right Ventricle Right atrium and right ventricle are normal size and contractility. Aortic Valve Aortic valve is minimally thickened and fibrosed, there is no aortic stenosis or aortic insufficiency. Mitral Valve Mitral valve is grossly normal, there is mild mitral regurgitation. Tricuspid Valve Tricuspid valve grossly normal, there is mild tricuspid regurgitation, tricuspid regurgitation jet velocity is inadequate for calculation of the right ventricular systolic pressure. Pulmonic Valve Pulmonic valve is poorly visualized. Great Vessels Aortic root is normal size. Pericardium No significant pericardial effusion noted. Conclusion 1. Mildly enlarged left atrium, normal left ventricular size, visually estimated ejection fraction 55% with no regional wall motion abnormality, diastolic parameters are inconclusive. 2. Mild mitral and tricuspid regurgitation. 3. No significant pericardial effusion noted. Electronically signed by : Azar Lazaro, 05/04/2020 21:20:26
== END ==
PROVIDERS: PCP Internal Medicine Adolescent Medicine; Visit Provider Internal Medicine Adolescent Medicine
DX: R07.89 Other chest pain (principal)
CPT/HCPCS: 93306

== ENCOUNTER → 2020-06-21 12:47 | Outpatient (CLI) | payer MEDICARE, SELFPAY ==
--- NOTE | 2020-06-21 | XR_ITS ---
PROCEDURE: XR DEXA AXIAL SKELETON CLINICAL HISTORY: POST MENOPAUSAL COMPARISON: No exams were available for comparison FINDINGS: The right hip BMD is 0.904 with a T-score of 0.5. The left hip BMD is 0.899 with a T-score of 0.5. The lumbar spine BMD is 1.249 with a T-score of 1.8. IMPRESSION: This patient is considered normal according to the World Health Organization criteria. Fracture risk is low. Based on these results a follow-up exam is recommended in 1 year. Dictated by: Walter Dunne MD 06/22/2020 13:30 Walter Dunne MD in [place] 06/22/2020 13:30
--- NOTE | 2020-06-21 12:52 | MM_ITS ---
PROCEDURE: MM DIG SCREENING MAMM BI W/CAD Digital Breast Tomosynthesis Included CLINICAL INDICATION: SCREENING There is no personal or family history of breast cancer. COMPARISON: MG DMSB DIG MAMM-SCREEN CRISTAL from 08/21/2013 MG SCBI MM Dig screening mamm BI w/CAD from 11/15/2017 MG from 11/15/2017 TECHNIQUE: Standard CC and MLO images and 3D Tomosynthesis was obtained. R2 CAD reviewed. FINDINGS: Scattered fibroglandular densities are seen throughout both breasts. There is a mole marker on each breast near the inframammary fold there is a possible asymmetric density lower central left breast. This may have been present previously but is better seen on today's study with triston images. Recommend the patient return for spot compression views and ultrasound for additional evaluation. There are no suspicious microcalcifications. IMPRESSION: Fibrofatty parenchyma with possible asymmetric density left breast BI-RAD Category: 0 Need Additional Imaging Evaluation FOLLOW-UP: IMM Immediate Follow-up Recommended (A letter has been sent to the patient regarding results of the study.) Dictated by: Dr. Marek Inman MD 06/27/2020 10:16 Dr. Marek Inman MD in [place] 06/27/2020 10:16
== END ==
PROVIDERS: PCP Internal Medicine Adolescent Medicine; Visit Provider Internal Medicine Adolescent Medicine
DX: Z12.31 Encounter for screening mammogram for malignant neoplasm of breast (principal); Z13.820 Encounter for screening for osteoporosis; Z78.0 Asymptomatic menopausal state
CPT/HCPCS: 77063; 77067; 77080

== ENCOUNTER → 2020-09-27 13:00 | Outpatient (CLI) | payer MEDICARE, SELFPAY ==
--- NOTE | 2020-09-27 13:03 | MM_ITS ---
PROCEDURE: MM DIG MAMM DX UNILAT LT CAD Digital Breast Tomosynthesis Included Complete left breast ultrasound CLINICAL INDICATION: ABN MAMM. Callback for left breast focal asymmetry. COMPARISON: MG from 11/15/2017 MG SCBI MM Dig screening mamm BI w/CAD from 11/15/2017 CR XR DEXA AXIAL SKELETON from 06/21/2020 MG MM DIG SCREENING MAMM BI W/CAD from 06/21/2020 US US BREAST LT COMPLETE from 09/27/2020 TECHNIQUE: Digital spot compression CC and MLO views of the left breast and digital true lateral view of the left breast were obtained. FINDINGS: Previously noted focal asymmetry at about 6 o'clock left breast persists on spot compressions without spiculation of the margins. Scattered fibroglandular elements which may obscure a lesion on mammography. No other abnormality. Complete left breast ultrasound was performed. At 6 o'clock at the site of mammographic abnormality there is a 6 millimeter probable mildly complicated cyst. No other abnormality. A few benign-appearing lymph nodes in the left axilla. Findings are considered probably benign and repeat left breast digital diagnostic mammograms and limited left breast ultrasound in 6 months are recommended. IMPRESSION: Probably benign small focal asymmetry in the left breast at 6 o'clock showing as a 6 millimeter probable mildly complicated cyst by ultrasound. BI-RAD Category: 3 Probably Benign Finding Short Term Follow-Up FOLLOW-UP: Repeat left breast digital diagnostic mammograms and limited left breast ultrasound in 6 months. (A letter has been sent to the patient regarding results of the study.) Dictated by: Macho Buck 09/27/2020 16:53 Macho Buck in [place] 09/27/2020 16:53
== END ==
PROVIDERS: PCP Internal Medicine Adolescent Medicine; Visit Provider Internal Medicine Adolescent Medicine
DX: R92.8 Other abnormal and inconclusive findings on diagnostic imaging of breast (principal)
CPT/HCPCS: 76641; 77061; 77065; G0279

== ENCOUNTER → 2021-01-10 10:43 | Outpatient (CLI) | payer MEDICARE, SELFPAY ==
[2021-01-10 11:21] LABS: Basophils # 0.1 K/mm3 (0-0.2); Basophils % 0.7 % (0.1-2.0); Eosinophils # 0.1 K/mm3 (0.0-0.4); Eosinophils % 0.9 % (0.1-12.0); Hematocrit 45.3 % (37.0-47.0); Hemoglobin 14.6 g/dL (12.2-16.2); Lymphocytes # 3.2 K/mm3 (0.7-4.5); Lymphocytes % 35.5 % (10-50); Mean Corpuscular HGB Conc 32.3 g/dL (31.8-35.4); Mean Corpuscular Hemoglobin 28.2 pg (27.0-31.2); Mean Corpuscular Volume 87.2 fl (81-99); Mean Platelet Volume 7.8 fl (7.4-10.4); Monocytes # 0.5 K/mm3 (0.1-1.0); Monocytes % 5.3 % (1.7-9.3); Neutrophils # 5.2 K/mm3 (1.8-7.8); Neutrophils % 57.5 % (37.0-80.0); Platelet Count 328 K/mm3 (142-424); Red Blood Count 5.19 M/mm3 (4.20-5.40); Red Cell Distribution Width 14.2 % (11.5-17.5)
[2021-01-10 11:54] LABS: Alanine Aminotransferase 12 U/L (12-78); Albumin Level 3.9 g/dl (3.5-5.0); Albumin/Globulin Ratio 1.4 (1.1-1.8); Alkaline Phosphatase 82 U/L (38-126); Anion Gap 10.7 mEq/L (5-15); Aspartate Amino Transferase 22 U/L (14-36); Bilirubin,Total 0.6 mg/dl (0.2-1.3); Blood Urea Nitrogen 19 mg/dl (7-17); Calcium 9.6 mg/dl (8.4-10.2); Carbon Dioxide 28 mmol/L (22.0-30.0); Chloride 106 mmol/L (98-107); Chol/HDL Ratio 5.5 (1-3.5); Cholesterol 225 mg/dl (140-200); Estimated Glomerular Filt Rate 81 ml/min (>60); GFR (African American) 98 ML/MIN (>60); Globulin 2.8 g/dL (1.3-3.2); Glucose 93 mg/dl (74-100); HDL Cholesterol 41 mg/dl (40-60); Potassium 4.7 mmoL/L (3.5-5.1); Sodium 140 mmol/L (136-145); Total Protein,Serum 6.7 g/dl (6.3-8.2); Triglycerides 164 mg/dl (30-150); VLDL Cholesterol 33 mg/dL (0-40)
== END ==
PROVIDERS: Visit Provider Internal Medicine Adolescent Medicine
DX: Z00.00 Encounter for general adult medical examination without abnormal findings (principal); I10 Essential (primary) hypertension
CPT/HCPCS: 36415; 80053; 80061; 85025

== ENCOUNTER → 2021-07-21 13:56 | Outpatient (CLI) | payer MEDICARE, SELFPAY ==
--- NOTE | 2021-07-21 14:03 | MM_ITS ---
PROCEDURE INFORMATION: Exam: US Left Breast, Complete MG Bilateral Diagnostic Breast Tomosynthesis Exam date and time: 07/21/2021 2:59 PM Age: 76 years old Clinical indication: Continued short-term surveillance for a left breast mass TECHNIQUE: Imaging protocol: Complete ultrasound of all four quadrants of the Left breast and the retroareolar regions, including ultrasound of the axilla when performed. Bilateral Diagnostic tomosynthesis and 2D mammography including computer-aided detection (CAD) when performed. Unilateral or bilateral exam. COMPARISON: 1. MG MM DIG MAMM DX UNILAT LT CAD 09/27/2020 1:04 PM 2. MG MM DIG SCREENING MAMM BI W/CAD 06/21/2020 12:59 PM 3. US BREAST LT COMPLETE 09/27/2020 2:01 PM 4. MG SCBI MM Dig screening mamm BI w/CAD 11/15/2017 10:28 AM FINDINGS: MAMMOGRAPHY: The breast tissue is composed of scattered areas of fibroglandular density. There is no stellate mass, architectural distortion or suspicious microcalcifications in either breast to suggest malignancy. Stable 0.5 cm mass in the middle third of the left 6 o'clock axis. No skin thickening or axillary adenopathy. ULTRASOUND: Sonographic images of the left breast including the retroareolar region, all 4 quadrants and the axilla do not demonstrate any solid masses. Two subcentimeter clusters of micro cysts are noted in the 12 and 6 o'clock axes. The 6 o'clock axis cystic change likely correlates with the mass seen on mammography. No architectural distortion or acoustical shadowing. No skin thickening or axillary adenopathy. IMPRESSION: Stable 0.5 cm mass in the left 6 o'clock axis compared to prior mammograms dating back to and including 06/21/2020. A six-month follow-up diagnostic left mammogram is recommended for continued close surveillance unless otherwise clinically indicated. ASSESSMENT: BI-RADS Category 3: Probably benign
== END ==
PROVIDERS: PCP Internal Medicine Adolescent Medicine; Visit Provider Internal Medicine Adolescent Medicine
DX: R92.8 Other abnormal and inconclusive findings on diagnostic imaging of breast (principal)
CPT/HCPCS: 76641; 77062; 77066; G0279

== ENCOUNTER 2021-10-03 15:10 | Outpatient (RCR) | payer MEDICARE, SELFPAY ==
--- NOTE | 2021-10-03 16:10 | HMH.PTOPEV ---
PT Outpatient Evaluation Rehab PT Outpatient Evaluation Start: 10/03/21 15:15 Freq: Status: Active Protocol: Document 10/03/21 15:16 NAVEENMIRIAM (Rec: 10/03/21 16:09 RUSLAN [id number]) Electronically Signed By Martinez Mcclelland PT 10/03/21 15:16 Outpatient Therapy Subjective History Subjective History This is the initial Physical Therapy evaluation for Evelia Mclaughlin. Pt reports to PT for c/o vertigo over the last few months. Pt states she hasn't had any issues for years but recently in August she began having successive bouts of vertigo. Pt reports 5-6 bouts since mid august. Pt does not report any incidence of falling, but does have c/o nausea, vomiting, and difficulty w/ movment during and after spell Chief Complaint Other Symptom Type Other Symptoms Relieved By Prescription Meds Prior Functional Limitations None Current Functional Limitations Housework,Driving,Sleeping, Recreation Activity,Balance Symptom Description Intermittent Balance Eval Subjective Hx of Complaint Comment intermittant bouts of spinning vertigo lasting for several hours Chief Complaint vertigo Yes Did you feel dizzy, unsteady or faint? Yes Prior Functional Limitations Prior Functional [place] Level modified independence Current Functional Limitations Comment driving, rec, house work Hx of Falls Hx Falls No Gait/Posture Asssessment General Gait Observation Wide Based Gait Body Alignment Posture Rigid Nystagmus Nystagmus Presence None Oculomotor Gaze Oculomotor Gaze Nml: Vergence Smooth Pursuit Saccades VOR Cancellation Cover/Uncover Cross Cover Outpatient Therapy Assessment Impairments Problems/Impairmments Impaired Driving,Impaired Household Care,Impaired Recreational Activities, Impaired Balance,Impaired Self Care/Self Management Prognosis Rehab Potential Innapropri
== END 2021-10-03 15:15 | disposition home or self-care (01) ==
LOC: PT 15:10
PROVIDERS: PCP Internal Medicine Adolescent Medicine; Visit Provider Internal Medicine Adolescent Medicine
DX: R42 Dizziness and giddiness (principal)
CPT/HCPCS: 97163

== ENCOUNTER 2025-01-05 10:00 | Outpatient (RCR) | payer MEDICARE, SELFPAY ==
--- NOTE | 2024-12-19 16:11 | HMH.PTOPEV ---
PT Evaluation Rehab PT Outpatient Evaluation Start: 12/19/24 14:59 Freq: Status: Active Protocol: Document 12/19/24 15:46 PHORNE (Rec: 12/19/24 16:10 PHORNE [id number]) E-signed By Leon Sanchez, PT Outpatient Therapy Subjective History Subjective History This is the initial PT eval for Evelia Mclaughlin, 79 yowf who presents with c/o intermittent episodes of vertigo and dizziness for many years with unknown cause . She reports her episodes of dizziness last ~ 2-4 hours at a time and are only intermittently associated with vertigo. She reports nausea sometimes associated as well. She states, I feel my heartbeating in my right ear and it doesn't stop until the dizziness goes away. 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 Skilled therapy is indicated in order to reduce instances of vertigo and dizziness in order to aid pt improvement in QOL. Clinical Impression Consistent with Yes Diagnosis PT Patient Goals PT Patient Goals PT Short Term In 2 wks pt will: Patient Goals 1) Exhibit minimal episodes of vertigo with all ADLs PT Parts Room Associate Patient In 4 wks pt will: Goals 1) Exhibit no episodes of vertigo with all ADLs 2) Have no c/o dizziness with any positions. Outpatient Therapy Plan of Care Treatment Plan May Include Therapeutic Exercise Yes Including Home Exercise Program Manual Therapy Yes Techniques Neuromuscular Re- Yes education Therapeutic Yes Activities to Return to Previous Functional/Work Level ADL/Self Care Yes Education Eval/Re-Eval Yes Canalith Yes Repositioning Technique Frequency Times per week 2 Duration Number of Weeks 4 Addendums This patient is a No candidate for social or vocational rehab ? Patient/Guardian Yes verbally acknowledges understanding of treatment program and consents to further treatment? Patient/Guardian Yes verbally acknowledges understanding of diagnosis, prognosis and goals for treatment? Eval Complexity PT Charges 13651 - High Complexity Shoulder/Elbow Eval Shoulder Objective Measurements Elbow Objective Measurements PHYSICIAN CERTIFICATION: I certify the specified therapy services for Evelia Mclaughlin are required, authorized, and reviewed every 30 days.
== END 2025-01-05 23:59 | disposition home or self-care (01) ==
LOC: PT 10:00
PROVIDERS: PCP Internal Medicine Adolescent Medicine; Visit Provider Internal Medicine Adolescent Medicine
DX: R42 Dizziness and giddiness (principal)
CPT/HCPCS: 97163; 97535